=== PATIENT | female | born 1940 | race Native Hawaiian/Other Pacific Islander ===

== ENCOUNTER 2016-05-07 11:50 | Outpatient (CLI) | payer MEDICARE, OTHER | END 2016-05-07 11:51 | disposition home or self-care (01) | DX: J18.9 Pneumonia, unspecified organism (principal) ==

== ENCOUNTER 2016-06-26 09:09 | Outpatient (CLI) | payer MEDICARE, OTHER | END 2016-06-26 09:10 | disposition home or self-care (01) | DX: Z00.00 Encounter for general adult medical examination without abnormal findings (principal); I10 Essential (primary) hypertension; E78.5 Hyperlipidemia, unspecified; I77.9 Disorder of arteries and arterioles, unspecified; I77.1 Stricture of artery; F17.200 Nicotine dependence, unspecified, uncomplicated ==

== ENCOUNTER 2016-06-30 | Outpatient (CLI) | payer MEDICARE, OTHER | END 2016-06-30 12:39 | disposition home or self-care (01) | DX: Z53.9 Procedure and treatment not carried out, unspecified reason (principal) ==

== ENCOUNTER 2016-07-03 14:12 | Outpatient (CLI) | payer MEDICARE, OTHER | END 2016-07-03 14:13 | disposition home or self-care (01) | DX: Z13.820 Encounter for screening for osteoporosis (principal); N95.9 Unspecified menopausal and perimenopausal disorder; E55.9 Vitamin D deficiency, unspecified ==

== ENCOUNTER 2017-06-14 09:15 | Outpatient (CLI) | payer MEDICARE, OTHER | END 2017-06-14 09:30 | disposition home or self-care (01) | LOC: RT.N 09:15 | PROVIDERS: ATTEND Physician Assistant Medical | DX: R42 Dizziness and giddiness (principal); R07.9 Chest pain, unspecified | CPT/HCPCS: 93005 ==

== ENCOUNTER 2017-06-16 09:02 | Outpatient (CLI) | payer MEDICARE, OTHER ==
[2017-06-16 13:00] LABS: BASOPHILS # (AUTO) 0.1 10^3/uL (0.0-0.1); BASOPHILS % (AUTO) 1.4 %; EOSINOPHILS # (AUTO) 0.3 10^3/uL (0.0-0.7); EOSINOPHILS % (AUTO) 3.2 %; HGB - HEMOGLOBIN 14.7 g/dL (12.0-16.0); LYMPHOCYTES # (AUTO) 1.6 10^3/uL (1.5-3.5); LYMPHOCYTES % (AUTO) 18.2 %; MEAN CORPUSCULAR HEMOGLOBIN 31.1 pg (27.0-31.0); MEAN CORPUSCULAR HGB CONC 33.4 g/dL (32.0-36.0); MEAN CORPUSCULAR VOLUME 93.1 fL (81.0-99.0); MONOCYTES # (AUTO) 0.8 10^3/uL (0.0-1.0); MONOCYTES % (AUTO) 8.5 %; NEUTROPHILS # (AUTO) 6.1 10^3/uL (1.5-6.6); NEUTROPHILS % (AUTO) 68.7 %; PLT - PLATELET COUNT 303 10^3/uL (130-450); RED BLOOD COUNT 4.71 10^6/uL (4.20-5.40); RED CELL DISTRIBUTION WIDTH 14.6 % (12.0-15.0); WHITE BLOOD COUNT 8.8 x10^3/uL (4.8-10.8)
[2017-06-16 13:29] LABS: ALBUMIN 4.6 g/dL (3.2-5.5); ALBUMIN/GLOBULIN RATIO 1.4 (1.0-2.2); ALKALINE PHOSPHATASE 59 IU/L (42-121); ALT ALANINE AMINOTRANSFERASE 19 IU/L (10-60); AST ASPARTATE AMINOTRANSFERASE 28 IU/L (10-42); BILIRUBIN,TOTAL 0.7 mg/dL (0.2-1.0); BUN - BLOOD UREA NITROGEN 17 mg/dL (6-20); CARBON DIOXIDE - CO2 25 mmol/L (21-32); CHLORIDE 102 mmol/L (101-111); CHOL/HDL RATIO 2.2 (<4.4); CHOLESTEROL 136 mg/dL; CREATININE 0.6 mg/dL (0.4-1.0); GFR - MDRD 97 (>89); GLUCOSE 102 mg/dL (70-100); HDL CHOLESTEROL 61 mg/dL; LDL CHOLESTEROL,CALCULATED 58 mg/dL; SODIUM 137 mmol/L (135-145); VLDL CHOLESTEROL 17 mg/dL
[2017-06-16 13:35] LABS: HB2 TOTAL 16.6 g/dL; HEMOGLOBIN A1C 0.79 g/dL; HEMOGLOBIN A1C % 6.5 % (4.6-6.2)
== END 2017-06-16 09:03 | disposition home or self-care (01) ==
LOC: LAB.N 09:02
PROVIDERS: ATTEND Physician Assistant Medical
DX: I65.29 Occlusion and stenosis of unspecified carotid artery (principal); I10 Essential (primary) hypertension; E11.9 Type 2 diabetes mellitus without complications; E78.5 Hyperlipidemia, unspecified; R42 Dizziness and giddiness; R07.89 Other chest pain; J44.9 Chronic obstructive pulmonary disease, unspecified; F17.210 Nicotine dependence, cigarettes, uncomplicated
CPT/HCPCS: 36415; 80053; 80061; 82043; 83036; 83721; 84443; 85025

== ENCOUNTER 2017-07-12 09:37 | Outpatient (CLI) | payer MEDICARE, OTHER ==
[2017-07-12 12:57] LABS: CREATININE 0.6 mg/dL (0.4-1.0)
== END 2017-07-12 23:59 ==
LOC: LAB.N 09:37
PROVIDERS: ATTEND Internal Medicine Cardiovascular Disease
DX: I73.9 Peripheral vascular disease, unspecified (principal); I77.1 Stricture of artery; I10 Essential (primary) hypertension
CPT/HCPCS: 36415; 80048

== ENCOUNTER 2017-07-28 12:49 | Emergency (ER) | payer MEDICARE, OTHER ==
[2017-07-28] MEDS ORDERED: SODIUM CHLORIDE 0.9% 1,000 ML IV ONE (13:39)
[2017-07-28] MEDS ORDERED: ONDANSETRON 4 MG/2 ML VIAL IVP STA (13:40)
--- NOTE | 2017-07-28 13:43 | ED Physician Documentation ---
PD HPI FOCAL NEURO - Stated complaint Stated Complaint: WEAK/DIZZY - Chief complaint Chief Complaint: Neuro - History obtained from History obtained from: Patient, Family (spouse) - History of Present Illness Timing - onset: How many hours ago (05/04), Today Timing - duration: Hours (2) Timing - details: Abrupt onset, Still present Severity of deficit: Mild Weakness: Other (feeling of lightheadedness and vertigo/dizziness, abruptly, with feeling off balance. No new focal weakness. Had similar lasting few minutes about amonth ago and seen by Cardiology Dr. Bernabe and Dr. Xavier, with findings of diminished flow right ?neck/arm.). No: Face Numbness: No: Face Associated symptoms: No: Headache, Nausea / vomiting Contributing factors: positive: Atrial fibrillation. 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 denies: Numbness , Near syncope PD PAST MEDICAL HISTORY - Past Medical History Cardiovascular: Hypertension, High cholesterol Respiratory: COPD, Pneumonia Neuro: CVA (with left facial mild droop and twitching. ) Endocrine/Autoimmune: None GI: None : None HEENT: None Psych: None Musculoskeletal: None Derm: None - Past Surgical History Past Surgical History: Yes General: Colonoscopy Ortho: Rotator cuff repair /[employer]: section, Tubal ligation - Present Medications Home Medications: Ambulatory Orders Medication Instructions Recorded Confirmed Aspirin [Sherrie] 325 mg PO ONCE 12/13/13 09/11/14 Cetirizine [ZyrTEC] 10 mg PO ONCE 12/13/13 09/11/14 Fluticasone/Salmeterol 100/50 60 puffs INH BID 12/13/13 09/11/14 [Advair 100 Mcg/50 Mcg] Losartan [Cozaar] 50 mg PO DAILY 12/13/13 09/11/14 Simvastatin [Zocor] 40 mg PO DAILY 12/13/13 09/11/14 Ipratropium/Albuterol [Duoneb] 1 neb INH PRN 09/04/14 09/11/14 Multivitamin [Daily Multiple 1 each PO DAILY 09/04/14 09/11/14 Vitamin] Budesonide [Pulmicort] 09/11/14 09/11/14 Doxycycline Hyclate 100 mg ORAL DAILY 09/11/14 09/11/14 Guaifenesin [Mucinex] 600 mg PO 09/11/14 09/11/14 Saccharomyces Boulardii [Florastor] 250 mg PO DAILY 09/11/14 09/11/14 diphenhydrAMINE [Benadryl] 25 mg PO Q6H PRN #20 capsule 09/11/14 predniSONE [Deltasone] 20 mg PO DAILY 09/11/14 09/11/14 Meclizine [Antivert] 12.5 mg PO Q6H PRN #20 tablet 07/28/17 - Allergies Allergies/Adverse Reactions: Allergies Allergy/AdvReac Type Severity Reaction Status Date / Time No Known Drug Allergies Allergy Verified 09/04/14 21:09 - Social History Does the pt smoke?: No Smoking Status: Never smoker Does the pt drink ETOH?: No Does the pt have substance abuse?: No - Immunizations Immunizations are current?: Yes - POLST Patient has POLST: Yes PD ED PE NORMAL - Vitals Vital signs reviewed: Yes - General General: Alert and oriented X 3, No acute distress, Well developed/nourished - HEENT HEENT: Ears normal, Pharynx benign - Neck Neck: Supple, no meningeal sign, No adenopathy - Cardiac Cardiac: RRR, No murmur - Respiratory Respiratory: Clear bilaterally - Abdomen Abdomen: Soft, Non tender - Back Back: No CVA TTP - Derm Derm: Normal color, Warm and dry - Neuro Neuro: Normal speech, Other (lef facial droop and numbness which she says is baseline from prior CVA. ) NIHSS - Level of Consciousness Level of consciousness: (0) Alert, Keenly responsive LOC Questions: (0) Answers both Q's correct LOC Commands: (0) Performs both correctly - Gaze Best Gaze: (0) Normal - Visual Visual: (0) No loss - Facial Palsy Facial Palsy: (1) Minor paralysis (from prior CVA) - Motor Arms (both separate) Motor Arm (right): (0) No drift Motor Arm (left): (0) No drift - Motor Legs (both separate) Motor Leg (right): (0) No drift Motor Leg (left): (0) No drift - Limb Ataxia Limb Ataxia: (0) Absent - Sensory Sensory: (0) Normal - Best Language Best Language: (0) No aphasia - Dysarthria Dysarthria: (0) Normal - Extinction and Inattention (formally neg Extinction and inattention: (0) No abnormality - Total Score/Results Total Score/Result: 1 Results - Vitals Vitals: Oxygen O2 Source Room air - EKG (time done) 13:00 Rate: Rate (enter#) (87) Rhythm: NSR [place]: Normal Intervals: Normal [place] QRS: Normal Ischemia: Normal ST segments. No: ST elevation c/w ischemia, ST depression Computer interpretation: Disagree with computer - Labs Labs: Laboratory Tests 07/28/17 07/28/17 07/28/17 14:11 14:11 14:11 WBC 11.2 H RBC 4.38 Hgb 13.5 Hct 40.2 MCV 91.8 MCH 30.9 MCHC 33.6 RDW 14.8 Plt Count 270 MPV 7.3 L Neut # 8.7 H Lymph # 1.3 L [place] # 0.9 Eos # 0.2 Baso # 0.1 Absolute Nucleated RBC 0.00 Nucleated RBC % 0.0 Sodium 133 L Potassium 4.3 Chloride 98 L Carbon Dioxide 25 Anion Gap 10.0 BUN 9 Creatinine 0.6 Estimated GFR (MDRD) 97 Glucose 114 H POC Whole Bld Glucose Calcium 8.8 Magnesium 2.0 Total Bilirubin 0.9 AST 23 ALT 19 Alkaline Phosphatase 70 Troponin I < 0.04 Total Protein 7.8 Albumin 4.4 Globulin 3.4 Albumin/Globulin Ratio 1.3 Lipase 20 L Urine Color Urine Clarity Urine pH Ur Specific [place] Urine Protein Urine Glucose (UA) Urine Ketones Urine Occult Blood Urine Nitrite Urine Bilirubin Urine Urobilinogen Ur Leukocyte Esterase Ur Microscopic Review Urine Culture Comments 03/28/18 03/28/18 14:12 15:10 WBC RBC Hgb Hct MCV MCH MCHC RDW Plt Count MPV Neut # Lymph # [place] # Eos # Baso # Absolute Nucleated RBC Nucleated RBC % Sodium Potassium Chloride Carbon Dioxide Anion Gap BUN Creatinine Estimated GFR (MDRD) Glucose POC Whole Bld Glucose 116 H Calcium Magnesium Total Bilirubin AST ALT Alkaline Phosphatase Troponin I Total Protein Albumin Globulin Albumin/Globulin Ratio Lipase Urine Color YELLOW Urine Clarity CLEAR Urine pH 7.0 Ur Specific [place] 1.010 Urine Protein NEGATIVE Urine Glucose (UA) NEGATIVE Urine Ketones NEGATIVE Urine Occult Blood NEGATIVE Urine Nitrite NEGATIVE Urine Bilirubin NEGATIVE Urine Urobilinogen 0.2 (NORMAL) Ur Leukocyte Esterase NEGATIVE Ur Microscopic Review NOT INDICATED Urine Culture Comments NOT INDICATED - Rads (name of study) head CT Radiology: Prelim report reviewed (no acute changes; no bleed) brain MRI Radiology: Prelim report reviewed (n signs of acute CVA nor other suspect lesions) PD MEDICAL DECISION MAKING - ED course Complexity details: reviewed results, considered differential (concern for peripheral vs central vertigo and feeling of dissiness. She does feel that she is off balance too, so concern for CVA. CT was normal), d/w patient, d/w family (spouse) Departure - Departure Disposition: 01 Home, Self Care Clinical Impression: Dizziness, Light-headed feeling Medication side effect Qualifiers: Encounter type: initial encounter Qualified Code(s): T88.7XXA - Unspecified adverse effect of drug or medicament, initial encounter Clinical Impression: (Ruled Out): Cerebrovascular accident (CVA) Condition: Stable Record reviewed to determine appropriate education?: Yes Instructions: ED Vertigo Unspecified Follow-Up: Seferino Vaughn MD [Primary Care Provider] - Prescriptions: Meclizine [Antivert] 12.5 mg PO Q6H PRN #20 tablet PRN Reason: Vertigo Comments: No signs of stroke or other acute abnormality on your MRI. Presume this may be a side effect to the medication for smoking cessation your recently started. Hold that medication. He could possibly be in her ear process as well. Meclizine every 6-8 hours if needed for dizziness. Recheck if not improved over the next couple of days. Follow-up with your primary care regarding other smoking cessation ideas. Discharge Date/Time: 07/28/17 18:08
--- NOTE | 2017-07-28 14:08 | CT Preliminary Report ---
Exam: CT HEAD W/O STROKE PROTOCOL IMPRESSION: Generalized age-related cortical atrophic changes without evidence of acute intracranial abnormality. RAD[facility] The call report notification system was initiated by Dr. Javi Gimenez at 14:03 hrs on 07/28/17. The above findings were discussed with Dr. Javi Block by Dr. Javi Gimenez at 14:06 hrs on 07/28/17. SITE ID: [id number]
--- NOTE | 2017-07-28 14:08 | CT Report ---
EXAM: CT HEAD EXAM DATE: 07/28/2017 01:57 PM. CLINICAL HISTORY: Acute dizziness/vertigo about 1 1/2 hours [employer] REPA[employer]. COMPARISON: None. TECHNIQUE: Multiaxial CT images were obtained from the foramen magnum to the vertex. Reformats: Coron al. IV contrast: None. In accordance with CT protocol optimization, one or more of the following dose reduction techniques w ere utilized for this exam: automated exposure control, adjustment of mA and/or KV based on patient s ize, or use of iterative reconstructive technique. FINDINGS: Parenchyma: No intraparenchymal hemorrhage. No evidence of mass, midline shift, or CT findings of acu te infarction. Grace-white differentiation is distinct. Diffuse chronic microangiopathic white matter changes are evident. Extraaxial Spaces: Normal for age. No subdural or epidural collections identified. Ventricles: The ventricles and cortical sulci are enlarged, consistent with age-related tissue loss. Sinuses and orbits: Imaged paranasal sinuses, orbits, and mastoids show no significant abnormality. Bones: No evidence of fracture or calvarial defect. Other: None. IMPRESSION: Generalized age-related cortical atrophic changes without evidence of acute intracranial abnormality. RADIA The call report notification system was initiated by Dr. Javi Gimenez at 14:03 hrs on 07/28/17. The above findings were discussed with Dr. Javi Block by Dr. Javi Gimenez at 14:06 hrs on 07/28/17. Referring Provider Line: [phone] SITE ID: [id number]
[2017-07-28 14:24] LABS: BASOPHILS # (AUTO) 0.1 10^3/uL (0.0-0.1); BASOPHILS % (AUTO) 0.9 %; EOSINOPHILS # (AUTO) 0.2 10^3/uL (0.0-0.7); EOSINOPHILS % (AUTO) 1.7 %; HGB - HEMOGLOBIN 13.5 g/dL (12.0-16.0); LYMPHOCYTES # (AUTO) 1.3 10^3/uL (1.5-3.5); LYMPHOCYTES % (AUTO) 11.6 %; MEAN CORPUSCULAR HEMOGLOBIN 30.9 pg (27.0-31.0); MEAN CORPUSCULAR HGB CONC 33.6 g/dL (32.0-36.0); MEAN CORPUSCULAR VOLUME 91.8 fL (81.0-99.0); MEAN PLATELET VOLUME 7.3 fL (7.9-10.8); MONOCYTES # (AUTO) 0.9 10^3/uL (0.0-1.0); MONOCYTES % (AUTO) 7.8 %; NEUTROPHILS # (AUTO) 8.7 10^3/uL (1.5-6.6); PLT - PLATELET COUNT 270 10^3/uL (130-450); RED BLOOD COUNT 4.38 10^6/uL (4.20-5.40); RED CELL DISTRIBUTION WIDTH 14.8 % (12.0-15.0); WHITE BLOOD COUNT 11.2 x10^3/uL (4.8-10.8)
[2017-07-28 14:32] LABS: ALBUMIN 4.4 g/dL (3.2-5.5); ALBUMIN/GLOBULIN RATIO 1.3 (1.0-2.2); BILIRUBIN,TOTAL 0.9 mg/dL (0.2-1.0); CALCIUM 8.8 mg/dL (8.5-10.3); CREATININE 0.6 mg/dL (0.4-1.0); TOTAL PROTEIN 7.8 g/dL (6.7-8.2)
[2017-07-28] MEDS ORDERED: LORazepam 2 MG/ML VIAL IVP STA (15:04)
[2017-07-28 15:23] LABS: BILIRUBIN,URINE NEGATIVE (NEGATIVE); GLUCOSE, URINE (UA) NEGATIVE (NEGATIVE); KETONES,URINE (UA) NEGATIVE (NEGATIVE); LEUKOCYTE ESTERASE, URINE NEGATIVE (NEGATIVE); NITRITE,URINE NEGATIVE (NEGATIVE); OCCULT BLOOD,URINE NEGATIVE (NEGATIVE); PROTEIN,URINE NEGATIVE (NEGATIVE); UROBILINOGEN,URINE 0.2 (NORMAL) E.U./dL (NORMAL)
[2017-07-28 15:24] LABS: CLARITY,URINE CLEAR (CLEAR)
--- NOTE | 2017-07-28 16:54 | MRI Report ---
EXAM: MRI BRAIN WITHOUT CONTRAST EXAM DATE: 07/28/2017 04:36 PM. CLINICAL HISTORY: Dizziness/weak; possible CVA. COMPARISON: CT head from today. TECHNIQUE: Multiplanar, multisequence T1-weighted and fluid-sensitive MR sequences of the brain were performed. Sequences optimized for routine evaluation. Other: None. IV Contrast: None. FINDINGS: No restricted diffusion signal or magnetic susceptibility is present in the brain parenchyma. Motion degradation is present on the study which limits it. Ventricles and sulci are within normal limits for the patient's age. Fairly extensive subcortical and deep white matter FLAIR hyperintense signal is seen in the cerebral hemisphere white matter. FLAIR h yperintense signal in the ventral aspect of the medulla on the axial FLAIR sequence has no correlate on the other imaging sequence and is felt to be artifact. Expected flow voids are seen in the major intracranial vessels at the skull base. Expected flow void is seen in the superior sagittal sinus. No abnormal T1 shortening is present within the brain parenchyma. IMPRESSION: 1. No acute CVA is present on the diffusion-weighted images. 2. Small vessel ischemic change throughout the cerebral hemisphere white matter is noted 3. No intracranial mass is identified by noncontrast MRI. 4. Motion degradation significantly limits the examination [facility] Referring Provider Line: [phone] SITE ID: [id number]
[2017-07-28 18:04] VITALS: BP 103/91
== END 2017-07-28 18:08 | disposition home or self-care (01) ==
LOC: ED 12:49
DX: R42 Dizziness and giddiness (principal); T88.7XXA Unspecified adverse effect of drug or medicament, initial encounter; I10 Essential (primary) hypertension; J44.9 Chronic obstructive pulmonary disease, unspecified; E78.00 Pure hypercholesterolemia, unspecified; Z86.73 Personal history of transient ischemic attack (TIA), and cerebral infarction without residual deficits; Z79.82 Long term (current) use of aspirin
CPT/HCPCS: 36415; 70450; 70551; 80053; 81003; 83690; 83735; 84484; 85025; 93005; 96361; 96374; 96375; 99284; J2060; 81001; 87086

== ENCOUNTER 2017-08-23 08:01 | Outpatient (CLI) | payer MEDICARE, OTHER ==
[2017-08-23 13:30] LABS: HB2 TOTAL 15.8 g/dL; HEMOGLOBIN A1C 0.78 g/dL; HEMOGLOBIN A1C % 6.7 % (4.6-6.2)
[2017-08-23 13:45] LABS: BUN - BLOOD UREA NITROGEN 14 mg/dL (6-20); CALCIUM 9.3 mg/dL (8.5-10.3); CARBON DIOXIDE - CO2 25 mmol/L (21-32); CHLORIDE 99 mmol/L (101-111); CHOL/HDL RATIO 2.4 (<4.4); CHOLESTEROL 143 mg/dL; CREATININE 0.6 mg/dL (0.4-1.0); GFR - MDRD 97 (>89); GLUCOSE 102 mg/dL (70-100); HDL CHOLESTEROL 59 mg/dL; LDL CHOLESTEROL,CALCULATED 67 mg/dL; LDL/HDL RATIO 1.1 (<4.4); SODIUM 133 mmol/L (135-145); VLDL CHOLESTEROL 17 mg/dL
== END 2017-08-23 08:02 | disposition home or self-care (01) ==
LOC: LAB.N 08:01
PROVIDERS: ATTEND Internal Medicine Interventional Cardiology
DX: I73.9 Peripheral vascular disease, unspecified (principal); E11.9 Type 2 diabetes mellitus without complications
CPT/HCPCS: 36415; 80048; 80061; 83036; 83721

== ENCOUNTER 2018-02-01 07:55 | Outpatient (CLI) | payer MEDICARE, OTHER ==
[2018-02-01 14:01] LABS: HB2 TOTAL 14.5 g/dL; HEMOGLOBIN A1C 0.75 g/dL; HEMOGLOBIN A1C % 6.9 % (4.6-6.2)
[2018-02-01 14:13] LABS: CALCIUM 9.2 mg/dL (8.5-10.3); CREATININE 0.6 mg/dL (0.4-1.0)
== END 2018-02-01 07:56 | disposition home or self-care (01) ==
LOC: LAB.WCP 07:55
PROVIDERS: ATTEND Nurse Practitioner Gerontology
DX: E11.9 Type 2 diabetes mellitus without complications (principal)
CPT/HCPCS: 36415; 80048; 83036

== ENCOUNTER → 2018-03-08 | Outpatient (CLI) | payer MEDICARE, OTHER | LOC: RT.N 10:19 | PROVIDERS: ATTEND Nurse Practitioner | DX: R07.89 Other chest pain (principal) | CPT/HCPCS: 93005 ==

== ENCOUNTER 2018-06-23 04:23 | Emergency (ER) | payer MEDICARE, OTHER ==
--- NOTE | 2018-06-23 04:51 | ED Physician Documentation ---
PD HPI CHEST PAIN - Stated complaint Stated Complaint: CHEST PAIN - Chief complaint Chief Complaint: Cardiac - History obtained from History obtained from: Patient, Family - History of Present Illness Timing - onset: Enter time (03:00), Today Timing - onset during: Rest (at home while seated at computer) Timing - duration: Minutes Timing - details: Abrupt onset, Intermittant Pain level max: 6 Pain level now: 0 Quality: Pain Location: Substernal Radiation: Other (no radiation) Improved by: Nothing Worsened by: Other (no exacerbating factors) Associated symptoms: No: Shortness of air, Diaphoresis, Nausea, Vomiting, Feeling faint / dizzy, General Weakness, Palpitations, Cough Similar symptoms before: Has not had sx before Recently seen: Not recently seen Review of Systems Constitutional: reports: Reviewed and negative Cardiac: reports: Chest pain / pressure. denies: Palpitations, Pedal edema, Calf pain Respiratory: reports: Reviewed and negative GI: reports: Reviewed and negative Musculoskeletal: reports: Reviewed and negative PD PAST MEDICAL HISTORY - Past Medical History Cardiovascular: Hypertension, High cholesterol, Coronary artery disease, Other Respiratory: COPD, Pneumonia Endocrine/Autoimmune: None GI: None : None HEENT: None Psych: None Musculoskeletal: None Derm: None - Past Surgical History Past Surgical History: Yes General: Colonoscopy Ortho: Rotator cuff repair /[employer]: section, Tubal ligation Cardiovascular: Angioplasty, Other - Present Medications Home Medications: Ambulatory Orders Medication Instructions Recorded Confirmed Aspirin [Sherrie] 325 mg PO ONCE 12/13/13 06/23/18 Cetirizine [ZyrTEC] 10 mg PO ONCE 12/13/13 06/23/18 Fluticasone/Salmeterol 100/50 60 puffs INH BID 12/13/13 06/23/18 [Advair 100 Mcg/50 Mcg] Losartan [Cozaar] 50 mg PO DAILY 12/13/13 06/23/18 Simvastatin [Zocor] 40 mg PO DAILY 12/13/13 06/23/18 Ipratropium/Albuterol [Duoneb] 1 neb INH PRN 09/04/14 09/11/14 Multivitamin [Daily Multiple 1 each PO DAILY 09/04/14 09/11/14 Vitamin] Saccharomyces Boulardii [Florastor] 250 mg PO DAILY 09/11/14 09/11/14 - Allergies Allergies/Adverse Reactions: Allergies Allergy/AdvReac Type Severity Reaction Status Date / Time No Known Drug Allergies Allergy Verified 06/23/18 04:38 - Social History Does the pt smoke?: No Smoking Status: Never smoker Does the pt drink ETOH?: No Does the pt have substance abuse?: No - Immunizations Immunizations are current?: Yes - POLST Patient has POLST: Yes PD ED PE NORMAL - Vitals Vital signs reviewed: Yes - General General: Alert and oriented X 3, No acute distress, Well developed/nourished - HEENT HEENT: Moist mucous membranes - Neck Neck: Supple, no meningeal sign - Cardiac Cardiac: RRR, No murmur, No gallop, No rub - Respiratory Respiratory: No respiratory distress, Clear bilaterally - Abdomen Abdomen: Soft, Non tender - Derm Derm: Normal color, Warm and dry, No rash - Extremities Extremities: No edema Results - Vitals Vitals: Oxygen O2 Source Room air - EKG (time done) No standard instances Rate: Rate (enter#) (88) Rhythm: NSR [place]: Normal Intervals: Normal [place] QRS: Normal Ischemia: Normal ST segments - Labs Labs: Laboratory Tests 06/23/18 06/23/18 06/23/18 04:35 04:35 04:35 WBC 7.3 RBC 4.24 Hgb 13.2 Hct 39.8 MCV 93.8 MCH 31.2 H MCHC 33.2 RDW 14.4 Plt Count 297 MPV 7.3 L Neut # (Auto) 4.2 Lymph # (Auto) 1.9 [place] # (Auto) 0.9 Eos # (Auto) 0.2 Baso # (Auto) 0.1 Absolute Nucleated RBC 0.00 Nucleated RBC % 0.0 Sodium 135 Potassium 3.7 Chloride 96 L Carbon Dioxide 25 Anion Gap 14.0 H BUN 19 Creatinine 0.6 Estimated GFR (MDRD) 97 Glucose 119 H Calcium 9.0 Total Bilirubin 1.0 AST 26 ALT 19 Alkaline Phosphatase 73 Troponin I < 0.04 Total Protein 7.6 Albumin 4.5 Globulin 3.1 Albumin/Globulin Ratio 1.5 Lipase 44 - Rads (name of study) chest xray Radiology: Prelim report reviewed, See rad report PD MEDICAL DECISION MAKING - ED course Complexity details: reviewed results, re-evaluated patient, considered differential, d/w patient, d/w family ED course: chest-pain free by the time of my H+P and, on reevaluation after tests resulted, patient tells me she has not had any recurrence of chest pain during ED stay. Departure - Departure Disposition: 01 Home, Self Care Clinical Impression: Chest pain Qualifiers: Chest pain type: unspecified Qualified Code(s): R07.9 - Chest pain, unspecified Condition: Good Instructions: ED Chest Pain Atypical Unkn Cause Follow-Up: Chayito Castillo DNP [Primary Care Provider] - Discharge Date/Time: 06/23/18 06:18
[2018-06-23 04:52] LABS: BASOPHILS # (AUTO) 0.1 10^3/uL (0.0-0.1); EOSINOPHILS # (AUTO) 0.2 10^3/uL (0.0-0.7); EOSINOPHILS % (AUTO) 2.7 %; HGB - HEMOGLOBIN 13.2 g/dL (12.0-16.0); LYMPHOCYTES # (AUTO) 1.9 10^3/uL (1.5-3.5); LYMPHOCYTES % (AUTO) 26.4 %; MEAN CORPUSCULAR HEMOGLOBIN 31.2 pg (27.0-31.0); MEAN CORPUSCULAR HGB CONC 33.2 g/dL (32.0-36.0); MEAN CORPUSCULAR VOLUME 93.8 fL (81.0-99.0); MEAN PLATELET VOLUME 7.3 fL (7.9-10.8); MONOCYTES # (AUTO) 0.9 10^3/uL (0.0-1.0); MONOCYTES % (AUTO) 11.8 %; NEUTROPHILS # (AUTO) 4.2 10^3/uL (1.5-6.6); NEUTROPHILS % (AUTO) 58.1 %; PLT - PLATELET COUNT 297 10^3/uL (130-450); RED BLOOD COUNT 4.24 10^6/uL (4.20-5.40); RED CELL DISTRIBUTION WIDTH 14.4 % (12.0-15.0); WHITE BLOOD COUNT 7.3 x10^3/uL (4.8-10.8)
[2018-06-23 05:07] LABS: ALBUMIN 4.5 g/dL (3.2-5.5); ALBUMIN/GLOBULIN RATIO 1.5 (1.0-2.2); CREATININE 0.6 mg/dL (0.4-1.0); TOTAL PROTEIN 7.6 g/dL (6.7-8.2)
--- NOTE | 2018-06-23 05:38 | XRAY Report ---
Reason: chest pain, dyspnea Procedure Date: 06/23/2018 Accession Number: [id number] / [id number] Procedure: XR - Chest 2 View X-Ray CPT Code: 57280 FULL RESULT: EXAM: CHEST RADIOGRAPHY EXAM DATE: 06/23/2018 05:28 AM. CLINICAL HISTORY: Chest pain, dyspnea. COMPARISON: CHEST 2 VIEW PA/LAT 05/07/2016 12:25 PM. TECHNIQUE: 2 views. FINDINGS: Lungs/Pleura: No focal opacities evident. No pleural effusion. No pneumothorax. Normal volumes. Mediastinum: Heart and mediastinal contours are unremarkable. Other: None. IMPRESSION: Normal 2-view chest radiography. RADIA
[2018-06-23 06:01] VITALS: BP 131/66
== END 2018-06-23 06:18 | disposition home or self-care (01) ==
LOC: ED 04:23
DX: R07.9 Chest pain, unspecified (principal); I10 Essential (primary) hypertension; E78.00 Pure hypercholesterolemia, unspecified; I25.10 Atherosclerotic heart disease of native coronary artery without angina pectoris; Z79.82 Long term (current) use of aspirin
CPT/HCPCS: 36415; 71046; 80053; 83690; 84484; 85025; 93005; 99283; 99284

== ENCOUNTER 2018-06-24 09:20 | Outpatient (CLI) | payer MEDICARE, OTHER ==
--- NOTE | 2018-06-24 12:47 | XRAY Report ---
Reason: LUMBAGO Procedure Date: 06/24/2018 Accession Number: [id number] / [id number] Procedure: XRN - Lumbar Spine 2 View CPT Code: FULL RESULT: EXAM: LUMBOSACRAL SPINE RADIOGRAPHY EXAM DATE: 06/24/2018 09:47 AM. CLINICAL HISTORY: Lumbago. COMPARISONS: 06/28/2014 3:08 PM. TECHNIQUE: 3 views. FINDINGS: Alignment: There is 1.1 cm of anterolisthesis of L4 on L5, likely pars defect. No scoliosis. Bones: Five [id number] lumbar vertebral bodies are present. No fractures or bone lesions. Disks: Moderate loss of disk space height with sclerosis and osteophytosis. Facets: Severe facet arthropathy at L4 and L5, mild to moderate at other levels. Sacroiliac Joints: Unremarkable. Soft Tissues: Calcifications of the abdominal aorta. IMPRESSION: Degenerative changes with 1.1 cm of anterolisthesis of L4 on L5. RADIA
== END 2018-06-24 09:21 | disposition home or self-care (01) ==
LOC: DI.N 09:20
PROVIDERS: ATTEND Nurse Practitioner
DX: M51.36 Other intervertebral disc degeneration, lumbar region (principal); M47.9 Spondylosis, unspecified; M43.16 Spondylolisthesis, lumbar region
CPT/HCPCS: 72100

== ENCOUNTER 2018-07-07 07:24 | Outpatient (CLI) | payer MEDICARE, OTHER ==
[2018-07-07 08:13] LABS: CHOLESTEROL 118 mg/dL; HDL CHOLESTEROL 60 mg/dL; LDL CHOLESTEROL,CALCULATED 44 mg/dL; LDL/HDL RATIO 0.7 (<4.4); VLDL CHOLESTEROL 14 mg/dL
== END 2018-07-07 07:25 | disposition home or self-care (01) ==
LOC: LAB 07:24
PROVIDERS: ATTEND Internal Medicine Cardiovascular Disease
DX: E78.5 Hyperlipidemia, unspecified (principal)
CPT/HCPCS: 36415; 80061; 83721

== ENCOUNTER 2018-10-25 07:07 | Outpatient (CLI) | payer MEDICARE, OTHER ==
--- NOTE | 2018-10-25 12:45 | CT Report ---
Reason: PERSONAL HISTORY OF NICOTINE DEPENDENCE Procedure Date: 10/25/2018 Accession Number: [id number] / [id number] Procedure: CT - Low Dose Lung Cancer Screen CPT Code: FULL RESULT: EXAM CT LUNG SCREEN EXAM DATE: 10/25/2018 07:37 AM. HISTORY: 78-year-old patient with [id number] smoking history. Currently smoking: Yes. COMPARISON: None. TECHNIQUE: CT examination of the entire thorax without contrast was performed using low-dose technique. Thin section coronal, axial, sagittal and MIP axial images were obtained. In accordance with CT protocol optimization, one or more of the following dose reduction techniques were utilized for this exam: automated exposure control, adjustment of mA and/or KV based on patient size, or use of iterative reconstructive technique. FINDINGS: Nodules: Right upper lobe: 4 mm nodule image 42 series 4. Partially groundglass 6 mm nodule image 43. 3 mm nodule image 52. 3 mm nodule image 58. 4 mm nodule image 68. Right middle lobe: None. Right lower lobe: 4 mm nodule image 74. 4 mm calcified nodule image 95, granuloma. 3 mm calcified nodule image 104, granuloma. Left upper lobe: 3 mm nodule image 39. Left lower lobe: None. Emphysema: Mild. Pleura: Biapical pleural thickening. Aorta: Severely calcified. Mediastinum: Unremarkable. Coronary calcifications: Severe 3 vessel. Other pulmonary findings: Subtle peripheral tree-in-bud opacities are noted, nonspecific but possibly smoking related hypersensitivity. Other extrapulmonary findings: None. IMPRESSION: Lung-RADS ASSESSMENT CATEGORY: 2 - benign appearance or behavior. Probability of malignancy: 1% RECOMMENDATION: Follow-up low-dose chest CT in one year as per lung RADS and USPSTF guidelines. RADIA
== END 2018-10-25 07:08 | disposition home or self-care (01) ==
LOC: DI 07:07
PROVIDERS: ATTEND Internal Medicine
DX: Z12.2 Encounter for screening for malignant neoplasm of respiratory organs (principal); J43.9 Emphysema, unspecified; F17.210 Nicotine dependence, cigarettes, uncomplicated

== ENCOUNTER 2020-08-27 16:28 | Outpatient (CLI) | payer MEDICARE, OTHER | END 2020-08-27 16:29 | disposition home or self-care (01) | LOC: COV 16:28 | PROVIDERS: ATTEND Internal Medicine Interventional Cardiology | DX: Z01.812 Encounter for preprocedural laboratory examination (principal); I77.1 Stricture of artery; Z20.822 Contact with and (suspected) exposure to COVID-19 ==

== ENCOUNTER 2022-09-04 10:30 | Outpatient (CLI) | payer MEDICARE, OTHER ==
--- NOTE | 2022-09-04 12:09 | Ultrasound Report ---
PROCEDURE: Duplex Ext Veins Right INDICATIONS: PAIN IN RIGHT LEG, EDEMA TECHNIQUE: Real-time imaging, as well as color and pulse Doppler interrogation, were performed of the lower extr emity deep veins from the inguinal ligament to the popliteal fossa. COMPARISON: None. FINDINGS: The deep veins are normally compressible, and free of intraluminal thrombus. Color and pu lse Doppler demonstrate normal phasic intraluminal flow. There is normal augmentation response to di stal compression maneuver. Small lobulated fluid collection is seen in popliteal fossa and measures approximately IMPRESSION: 1. No evidence of DVT in visualized right lower extremity veins. 2. Small right popliteal cyst. Reviewed by: Apolinar Baumann MD on 09/04/2022 12:08 PM PDT Approved by: Apolinar Baumann MD on 09/04/2022 12:08 PM PDT Station ID: [id number]
== END 2022-09-04 10:31 | disposition home or self-care (01) ==
LOC: DI 10:30
PROVIDERS: ATTEND Internal Medicine
DX: M79.604 Pain in right leg (principal); R60.0 Localized edema; M71.21 Synovial cyst of popliteal space [Baker], right knee

== ENCOUNTER 2022-12-16 09:55 | Outpatient (CLI) | payer MEDICARE, OTHER ==
--- NOTE | 2022-12-16 16:43 | CT Report ---
PROCEDURE: CHEST WO INDICATIONS: OTHER DISORDERS OF LUNG TECHNIQUE: Noncontrast 1mm axial images were acquired from the pulmonary apices to the posterior costophrenic an gles. Axial 5 mm soft tissue kernel reconstructions were performed as well as 8 mm axial MIP and cor onal and sagittal 5 mm reformations. For radiation dose reduction, the following was used: automate d exposure control, adjustment of mA and/or kV according to patient size. COMPARISON: CT 10/25/2018 FINDINGS: Image quality: Excellent. Lungs and pleura: No consolidation. No pleural effusions. No pneumothorax. No suspicious pulmonary n odules which require follow up. Stable solid and part solid nodule. Smooth interstitial thickening a nd bronchial thickening. Mediastinum: Heart size is normal. No pericardial effusion. Stable calcified intimal flap of the desc ending aorta, without aneurysmal dilation. Extensive atherosclerotic disease and three-vessel coronar y calcifications. No mediastinal adenopathy by size criteria. Chest wall and lower neck: Thyroid is unremarkable. No axillary or supraclavicular adenopathy by size . Bones: No aggressive osseous abnormality. Upper Abdomen: Unremarkable. IMPRESSION: Moderate pulmonary edema, smooth interstitial thickening and bronchial thickening. Stable pulmonary nodules. Reviewed by: Rocael Martinez on 12/16/2022 4:42 PM PDT Approved by: Rocael Martinez on 12/16/2022 4:42 PM PDT Station ID: [id number]
== END 2022-12-16 09:56 | disposition home or self-care (01) ==
LOC: DI 09:55
PROVIDERS: ATTEND Nurse Practitioner Family
DX: J98.4 Other disorders of lung (principal); J81.1 Chronic pulmonary edema; R91.8 Other nonspecific abnormal finding of lung field

== ENCOUNTER 2023-04-19 09:22 | Outpatient (CLI) | payer MEDICARE, OTHER ==
--- NOTE | 2023-04-19 20:15 | XRAY Report ---
PROCEDURE: Cervical Spine 2 View INDICATIONS: NECK PAIN TECHNIQUE: 3 views of the cervical spine were obtained. COMPARISON: None FINDINGS: Bones: Vertebral body height and alignment is maintained. No evidence of traumatic malalignment. Mid cervical spine degenerative disc space narrowing and hypertrophic facet joints Soft tissues: No prevertebral soft tissue swelling. 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
== END 2023-04-19 09:23 | disposition home or self-care (01) ==
LOC: DI 09:22
PROVIDERS: ATTEND Internal Medicine
DX: M47.812 Spondylosis without myelopathy or radiculopathy, cervical region (principal); M50.30 Other cervical disc degeneration, unspecified cervical region

== ENCOUNTER 2023-05-22 10:03 | Inpatient (IN) | payer MEDICARE, OTHER ==
[2023-05-22] MEDS ORDERED: IPRATROPIUM/ALBUTEROL 3 ML NEB INH STA ×2 (10:41→10:43)
[2023-05-22] MEDS ORDERED: IPRATROPIUM/ALBUTEROL 3 ML NEB INH ONE (10:44)
--- NOTE | 2023-05-22 10:49 | ED Physician Documentation ---
PD HPI DYSPNEA - Stated complaint Stated Complaint: SOA - Chief complaint Chief Complaint: Resp - History obtained from History obtained from: Patient - History of Present Illness Timing - onset: Yesterday Timing - onset during: Light activity Timing - duration: Days (2) Timing - details: Gradual onset (The patient had gradual but quick progression of wheezing and dyspnea increased with activity over the last 1-1/2 days. She does have COPD and has noticed a feeling of some cough and aches. She felt chilled at home. Did not take her temperature. Significantly dyspneic despite home inhalers.), Still present Inciting event(s): URI (Some feeling of viral type illness with aches and congestion and mild cough.). No: Out of meds Improved by: Rest. No: Inhaler/neb Worsened by: Exertion, Coughing. No: Laying flat Associated symptoms: Cough, Wheezing. No: Fever (but some chills), Hemoptysis, Palpitations, Bilateral edema Similar symptoms before: Diagnosis (feels like exac of COPD but has not had dyspnea to this degree in the past. Typical active and maintains with MDI and baseline inhalers. No history o CHF.) Review of Systems Constitutional: reports: Chills, Myalgias. denies: Fever Nose: reports: Congestion Throat: denies: Sore throat Cardiac: denies: Palpitations, Pedal edema, Calf pain Respiratory: reports: Dyspnea, Cough, Wheezing GI: denies: Abdominal Pain, Vomiting, Diarrhea Skin: denies: Rash, Lesions Neurologic: reports: Generalized weakness. denies: Altered mental status, Headache PD PAST MEDICAL HISTORY - Past Medical History Past Medical History: Yes Cardiovascular: Hypertension, High cholesterol, Coronary artery disease, Other Respiratory: COPD (stable without home oxygen nor prior hospitalizations for COPD itself. 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, Tubal ligation Cardiovascular: Angioplasty, Other - Present Medications Home Medications: Ambulatory Orders Medication Instructions Recorded Confirmed Aspirin [Sherrie] 325 mg PO ONCE 12/13/13 06/23/18 Cetirizine [ZyrTEC] 10 mg PO ONCE 12/13/13 06/23/18 Fluticasone/Salmeterol 100/50 60 puffs INH BID 12/13/13 06/23/18 [Advair 100 Mcg/50 Mcg] Losartan [Cozaar] 50 mg PO DAILY 12/13/13 06/23/18 Simvastatin [Zocor] 40 mg PO DAILY 12/13/13 06/23/18 Ipratropium/Albuterol [Duoneb] 1 neb INH PRN 09/04/14 09/11/14 Multivitamin [Daily Multiple 1 each PO DAILY 09/04/14 09/11/14 Vitamin] Saccharomyces Boulardii [Florastor] 250 mg PO DAILY 09/11/14 09/11/14 - Allergies Allergies/Adverse Reactions: Allergies Allergy/AdvReac Type Severity Reaction Status Date / Time No Known Drug Allergies Allergy Verified 05/22/23 10:31 - Social History Does the pt smoke?: No Smoking Status: Never smoker Does the pt drink ETOH?: No Does the pt have substance abuse?: No - Immunizations Immunizations are current?: Yes - POLST Patient has POLST: Yes PD ED PE NORMAL - Vitals Vital signs reviewed: Yes - General General: Alert and oriented X 3, Well developed/nourished, Other (She is tachypneic with some accessory muscle use and partial sentence conversational dyspnea. Heart rate is regular but tachycardic. O2 sat initially 71% on room air with good reading.) - Neck Neck: Supple, no meningeal sign, No adenopathy - Cardiac Cardiac: No murmur. No: RRR (regular but tachycardic. ) - Respiratory Respiratory: Other (diffuse wheezing and prolonged exp phase, without coarse sounds nor fine crackles. Bases are clear. ) - Abdomen Abdomen: Soft, Non tender - Extremities Extremities: No edema, No calf tenderness / cord - Neuro Neuro: Alert and oriented X 3, No motor deficit, Normal speech Results - Vitals Vitals: Vital Signs - 24 hr 05/22/23 05/22/23 05/22/23 10:28 10:48 11:00 Temperature 37 C Heart Rate 111 H 108 H 100 Respiratory 28 H 20 26 H Rate Blood Pressure 115/55 L 125/71 O2 Saturation 71 L 95 If not protocol 4 6 : Oxygen Flow, liters/minute 05/22/23 05/22/23 05/22/23 12:00 12:17 13:00 Temperature Heart Rate 106 H 100 102 H Respiratory 26 H 20 28 H Rate Blood Pressure 114/66 107/62 O2 Saturation 95 87 L If not protocol 6 : Oxygen Flow, liters/minute 05/22/23 05/22/23 13:35 14:00 Temperature Heart Rate 94 102 H Respiratory 20 26 H Rate Blood Pressure 105/52 L O2 Saturation 93 If not protocol 4 4 : Oxygen Flow, liters/minute Oxygen O2 Source Nasal cannula Oxygen Flow Rate 4 - EKG (time done) 11:45 EKG releavant findings:: EKG personally interpreted by author of this note. Relevant findings are: Rate: Rate (enter#) (1021) Rhythm: Sinus tachycardia [place]: Normal Intervals: Normal [place] QRS: Normal Ischemia: Normal ST segments. No: ST elevation c/w ischemia, ST depression - Labs Labs: Laboratory Tests 05/22/23 05/22/23 05/22/23 10:47 10:47 10:47 WBC 10.1 RBC 4.47 Hgb 14.0 Hct 40.9 MCV 91.5 MCH 31.3 H MCHC 34.2 RDW 15.0 Plt Count 272 MPV 9.0 Neut # (Auto) 8.5 H Lymph # (Auto) 0.3 L [place] # (Auto) 1.1 H Eos # (Auto) 0.1 Baso # (Auto) 0.1 Absolute Nucleated RBC 0.00 Nucleated RBC % 0.0 Sodium 131 L Potassium 4.2 Chloride 95 L Carbon Dioxide 25 Anion Gap 11.0 BUN 11 Creatinine 0.7 Estimated GFR (MDRD) 80 L Glucose 134 H Calcium 8.9 Magnesium 1.6 L Total Bilirubin 0.6 AST 19 ALT 12 Alkaline Phosphatase 66 B-Natriuretic Peptide 212 H Total Protein 7.3 Albumin 4.2 Globulin 3.1 Albumin/Globulin Ratio 1.4 Lipase 22 Nasal Adenovirus (PCR) Nasal B. parapertussis DNA (PCR) Nasal Coronavir 229E PCR Nasal Coronavir HKU1 PCR Nasal Coronavir NL63 PCR Nasal Coronavir OC43 PCR Nasal Enterovir/Rhinovir PCR Nasal Influ A H1 2009 PCR Nasal Influenza B PCR Nasal Parainfluen 1 PCR Nasal Parainfluen 2 PCR Nasal Parainfluen 3 PCR Nasal Parainfluen 4 PCR Nasal RSV (PCR) Nasal B.pertussis DNA PCR Nasal C.pneumoniae (PCR) Shantanu Human Metapneumo PCR Nasal M.pneumoniae (PCR) Nasal SARS-CoV-2 (PCR) 05/22/23 10:47 WBC RBC Hgb Hct MCV MCH MCHC RDW Plt Count MPV Neut # (Auto) Lymph # (Auto) [place] # (Auto) Eos # (Auto) Baso # (Auto) Absolute Nucleated RBC Nucleated RBC % Sodium Potassium Chloride Carbon Dioxide Anion Gap BUN Creatinine Estimated GFR (MDRD) Glucose Calcium Magnesium Total Bilirubin AST ALT Alkaline Phosphatase B-Natriuretic Peptide Total Protein Albumin Globulin Albumin/Globulin Ratio Lipase Nasal Adenovirus (PCR) NOT DETECTED Nasal B. parapertussis DNA (PCR) NOT DETECTED Nasal Coronavir 229E PCR NOT DETECTED Nasal Coronavir HKU1 PCR NOT DETECTED Nasal Coronavir NL63 PCR NOT DETECTED Nasal Coronavir OC43 PCR NOT DETECTED Nasal Enterovir/Rhinovir PCR NOT DETECTED Nasal Influ A H1 2009 PCR DETECTED A Nasal Influenza B PCR NOT DETECTED Nasal Parainfluen 1 PCR NOT DETECTED Nasal Parainfluen 2 PCR NOT DETECTED Nasal Parainfluen 3 PCR NOT DETECTED Nasal Parainfluen 4 PCR NOT DETECTED Nasal RSV (PCR) NOT DETECTED Nasal B.pertussis DNA PCR NOT DETECTED Nasal C.pneumoniae (PCR) NOT DETECTED Shantanu Human Metapneumo PCR NOT DETECTED Nasal M.pneumoniae (PCR) NOT DETECTED Nasal SARS-CoV-2 (PCR) NOT DETECTED - Rads (name of study) chest xray Relevant Findings:: Prelim report reviewed (Some lower lloyd nodular infiltrates c/w atypical pneumonia. ), EMP independent interpretation of test PD Medical Decision Making - ED course Complexity details: reviewed results (Respiratory viral panel is positive for influenza. Negative for RSV and COVID. Chest x-ray does not show any obvious infiltrates effusion or pneumothorax. Basic blood tests including CBC and chemistry panel and BNP show a normal white count. BNP minimally elevated at 212. GFR 80/Cr 0.7), re-evaluated patient (The patient did have improvement in breathing after multiple nebulizers of DuoNeb, DuoNeb and albuterol. She did not seem to be tiring. Consideration for BiPAP initially was deemed unneeded after some treatments and oxygen.), considered differential (Onset of cough and aches and general weakness 1 to 2 days ago with significant increase overnight into this morning. History of COPD with flareup despite use of home inhaler and nebulizer. 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 Her initial oxygenation was 71% on room air. This did improve with nasal cannula supplement and then subsequently a DuoNeb did decrease her wheezing significantly. She was oxygenation at 95% with nasal cannula at 4 L. Her work of breathing did improve. Repeat nebulizers x 2 afforded stepwise improvement in her breathing and she is much more comfortable at this time. She does not have any accessory muscle use on reexam. Her oxygenation is holding well on the cannula. I did attempt to turn it off to see how she does and went within a couple of minutes back down to 86%. The nasal cannula oxygen was reinstituted and discussion with the patient is a she would likely need to be staying at the hospital for further treatment. She does not usually use home oxygen and her COPD is reasonably controlled with home medication. She does not have any pneumonia. She does have influenza. We discussed Tamiflu and she is agreeable. She was given dose of steroids for her COPD. I wrote initial orders for regular nebulizer treatments as well as her home medication. We will allow her to eat and drink. She and her are aware that she does have enough illness that appears to require hospitalization but we do not have any beds available at this point so she will be boarding here in the ER. Time of decision for admission was 13:10. Subsequently the hospital did have a bed available due to her transfer from the floor. I talked with the hospitalist, Dr. Joe, who is excepting the patient for hospitalization. Recheck of the patient showed she still remained comfortable with breathing with an oxygenation 92% on 3 L nasal cannula. - Critical Care Time(min): 45 Comments: work of breathing. Hypoxic and needed several resp treatments and supplemental oxyben. Time Includes: Direct patient care, Reassess patient, Document care, Medical consult Data interpretation: Labs, Pulse ox, CXR Procedures excluded from critical care time: EKG Departure - Departure Disposition: ED Place in Observation Clinical Impression: Acute exacerbation of COPD with asthma, Influenza A, Hypoxia, Dyspnea Condition: Stable Forms: PCP List
[2023-05-22] MEDS ORDERED: DEXAMETHASONE 10 MG/ML VIAL IVP STA (10:50)
[2023-05-22 10:54] LABS: BASOPHILS # (AUTO) 0.1 10^3/uL (0.0-0.1); BASOPHILS % (AUTO) 1.3 %; EOSINOPHILS # (AUTO) 0.1 10^3/uL (0.0-0.7); EOSINOPHILS % (AUTO) 0.6 %; HCT - HEMATOCRIT 40.9 % (37.0-47.0); LYMPHOCYTES # (AUTO) 0.3 10^3/uL (1.5-3.5); LYMPHOCYTES % (AUTO) 2.8 %; MEAN CORPUSCULAR HEMOGLOBIN 31.3 pg (27.0-31.0); MEAN CORPUSCULAR HGB CONC 34.2 g/dL (32.0-36.0); MEAN CORPUSCULAR VOLUME 91.5 fL (81.0-99.0); MONOCYTES # (AUTO) 1.1 10^3/uL (0.0-1.0); MONOCYTES % (AUTO) 11.3 %; NEUTROPHILS # (AUTO) 8.5 10^3/uL (1.5-6.6); NEUTROPHILS % (AUTO) 83.5 %; PLT - PLATELET COUNT 272 10^3/uL (130-450); RED BLOOD COUNT 4.47 10^6/uL (4.20-5.40); WHITE BLOOD COUNT 10.1 x10^3/uL (4.8-10.8)
[2023-05-22 11:06] LABS: ALBUMIN 4.2 g/dL (3.2-5.5); ALBUMIN/GLOBULIN RATIO 1.4 (1.0-2.2); BILIRUBIN,TOTAL 0.6 mg/dL (0.2-1.0); CALCIUM 8.9 mg/dL (8.5-10.3); CREATININE 0.7 mg/dL (0.6-1.3); MAGNESIUM 1.6 mg/dL (1.7-2.3); POTASSIUM 4.2 mmol/L (3.5-4.5); TOTAL PROTEIN 7.3 g/dL (6.4-8.9)
[2023-05-22 11:48] LABS: CORONAVIRUS 229E-RESP PCR NOT DETECTED; CORONAVIRUS HKU1-RESP PCR NOT DETECTED; CORONAVIRUS NL63-RESP PCR NOT DETECTED; CORONAVIRUS OC43-RESP PCR NOT DETECTED; HUMAN METAPNEUMOVIRUS NOT DETECTED; RHINOVIRUS/ENTEROVIRUS NOT DETECTED; SARS-CoV-2 -RESP PCR PANEL NOT DETECTED
[2023-05-22 11:49] LABS: B. PARAPERTUSSIS- RESP PCR PAN NOT DETECTED; B. PERTUSSIS- RESP PCR PANEL NOT DETECTED; C. PNEUMONIAE- RESP PCR PANEL NOT DETECTED; INFLUENZA A H1 2009- RESP PCR DETECTED; INFLUENZA B - RESP PCR PANEL NOT DETECTED; M. PNEUMONIAE- RESP PCR PANEL NOT DETECTED; PARAINFLUENZA VIRUS 1 NOT DETECTED; PARAINFLUENZA VIRUS 2 NOT DETECTED; PARAINFLUENZA VIRUS 3 NOT DETECTED; PARAINFLUENZA VIRUS 4 NOT DETECTED; RSV- RESP PCR PANEL NOT DETECTED
[2023-05-22] MEDS ORDERED: ALBUTEROL NEB 2.5 MG/3 ML INH STA ×2 (11:59→13:14)
--- NOTE | 2023-05-22 13:10 | XRAY Report ---
PROCEDURE: Chest 1V INDICATIONS: chest pain TECHNIQUE: One view of the chest was acquired. COMPARISON: Chest radiographs 06/23/[address] 12/16/2022. FINDINGS: Surgical changes and devices: None. Lungs and pleura: Mild bilateral reticulonodular opacities may be chronic versus secondary to irregu lar atypical pneumonia. No pleural effusion or pneumothorax. Mediastinum: Mediastinal contours appear normal. Heart size is normal. Bones and chest wall: No suspicious bony lesions. Overlying soft tissues appear unremarkable. Hum eral head abuts the undersurface of the acromion. Postsurgical widening of the right acromioclavicula r joint. IMPRESSION: Mild bilateral reticulonodular opacities may be chronic versus secondary to a viral or atypical pneum onia. Reviewed by: Jarred Garcia MD on 05/22/2023 1:09 PM PST Approved by: Jarred Garcia MD on 05/22/2023 1:09 PM PST Station ID: [id number]
[2023-05-22] MEDS ORDERED: OSELTAMIVIR 75 MG CAPSULE PO STA (13:15)
[2023-05-22] MEDS ORDERED: tiZANidine 4 MG TABLET PO SCH (14:00)
[2023-05-22] MEDS ORDERED: ACETAMINOPHEN 325 MG TABLET PO PRN (15:52)
[2023-05-22] MEDS ORDERED: SODIUM CHLORIDE FLUSH 0.9% 10 ML SYRINGE IVP PRN (15:52)
[2023-05-22] MEDS ORDERED: oxyCODONE 5 MG TABLET PO PRN (15:52)
[2023-05-22] MEDS ORDERED: ONDANSETRON 4 MG/2 ML VIAL IVP PRN (15:52)
[2023-05-22] MEDS ORDERED: ONDANSETRON ODT 4 MG TABLET TL PRN (15:52)
--- NOTE | 2023-05-22 15:56 | HISTORY & PHYSICAL EXAMINATION ---
Chief Complaint - Chief Complaint Chief Complaint: cough and sob History of Present Illness - Admitted From Admitted From:: home - History Obtained From Records Reviewed: [facility] History obtained from: Dr. Block Exam Limitations: none - History of Present Illness HPI Comment/Other: 83-year-old female who smokes half a pack a day all of her life. She was admitted in August 2014 for acute respiratory failure associated with bronchitis. She now comes back to our emergency room with a gradual onset of cough, congestion, body aching. She started wheezing. All of this was over the last 2 days. She started taking her inhaler with increasing frequency and it was not helping. Every time she tries to get up and do something simple like get up to walk to the bathroom the wheezing and coughing are uncontrolled. It takes her a very long time to sit down and get over an attack. There has been no phlegm with this. No blood in her cough. She denies chest pain, palpitations, orthopnea, edema. As far she knows she has never had a heart problem. She does share with me that this is the worst she is ever felt with coughing and wheezing. This is even worse than the August 2014 admission.Appetite is still okay. She does get hungry. No GI complaints with this. In the emergency room temperature was 37, heart rate 111, respirations 28, room air saturation was 71%. She has been placed on nasal cannula to bring her O2 sat and she is requiring 4 L to bring her up to 94%. She is an alert oriented elderly female who has some accessory muscle use, can carry on partial sentence structure conversation. She is tachycardic. Diffuse wheezing on lung exam but no rhonchi or or crackles. Chest x-ray does not have pneumonia. White cell count is 10.1. BUN and creatinine are normal. BNP 212. Viral panel is positive for influenza A. I discussed the case with the emergency room provider. He is asking me to bring the patient into the hospital to treat her acute hypoxia and obstruction. She has received 2 nebulizers in the ER and she is breathing better, so I will place her in observation to see if continue nebulizer treatment and steroid treatment will turn the corner for her to be discharged tomorrow. History - Past Medical History Cardiovascular: reports: Hypertension, High cholesterol, Coronary artery disease, Other Respiratory: reports: COPD (stable without home oxygen nor prior hospitalizations for COPD itself. ), Pneumonia Endocrine/Autoimmune: reports: None GI: reports: None MANAGER SCHEDULING: reports: Other () : reports: None HEENT: reports: None Psych: reports: None Musculoskeletal: reports: None Derm: reports: None MRSA Hx?: No - Past Surgical History General: reports: Colonoscopy Ortho: reports: Rotator cuff repair /MANAGER SCHEDULING: reports: section, Tubal ligation Cardiovascular: reports: Angioplasty, Other - Family & Social History Family History Comment/Other: Mom at age 68 of a heart attack. Dad at 72 of a stroke. There are 8 siblings altogether. 5 are and she says that most of them have of complications of diabetes. 3 grown sons that are all healthy without heart attack, stroke, diabetes, hypertension Living arrangement: At home Living Situation: With spouse/s.o. Social History Notes: Born and raised in [facility] [place]. Left there to come to the [facility] in [place]. Smokes half a pack a day all of her life. No history of alcohol abuse or recreational substance abuse.No history of recreational substance abuse. She and her live in their own home - POLST Patient has POLST: No POLST Status: Full Code Meds/Allgy - Home Medications Home Medications: Ambulatory Orders Medication Instructions Recorded Confirmed Aspirin [Sherrie] 325 mg PO ONCE 12/13/13 06/23/18 Cetirizine [ZyrTEC] 10 mg PO ONCE 12/13/13 06/23/18 Fluticasone/Salmeterol 100/50 60 puffs INH BID 12/13/13 06/23/18 [Advair 100 Mcg/50 Mcg] Losartan [Cozaar] 50 mg PO DAILY 12/13/13 06/23/18 Simvastatin [Zocor] 40 mg PO DAILY 12/13/13 06/23/18 Ipratropium/Albuterol [Duoneb] 1 neb INH PRN 09/04/14 09/11/14 Multivitamin [Daily Multiple 1 each PO DAILY 09/04/14 09/11/14 Vitamin] Saccharomyces Boulardii [Florastor] 250 mg PO DAILY 09/11/14 09/11/14 - Allergies Allergies/Adverse Reactions: Allergies Allergy/AdvReac Type Severity Reaction Status Date / Time No Known Drug Allergies Allergy Verified 05/22/23 10:31 Review of Systems - Constitutional Constitutional: reports: Fatigue, Fever, Chills, Malaise, Weakness - Eyes Eyes: denies: Pain, Irritation, Amaurosis, Vision loss, Dipolpia - Ears, Nose & Throat Ears, Nose & Throat: reports: Nasal obstruction, Nasal congestion, Sore throat. denies: Ear pain, Hearing loss, Nasal discharge, Hoarseness - Cardiovascular Cariovascular: reports: Exertional dyspnea, Decr. exercise tolerance. denies: Irregular heart rate, Palpitations, Chest pain, Edema - Respiratory Respiratory: reports: Cough, SOB at rest, SOB with exertion. denies: Sputum production - Gastrointestinal Gastrointestinal: denies: Abdominal pain, Abdominal distention, Constipation, Diarrhea - Genitourinary Genitourinary: reports: Incontinence. denies: Frequency, Urgency, Flank pain, Nocturia - Musculoskeletal Musculoskeletal: reports: Muscle aches, Joint pain (As she has gotten older. They just get stiffer). denies: Muscle pain, Back pain - Integumentary Integumentary: denies: Rash, Pruritis, Lesions - Neurological Neurological: reports: Headache. denies: General weakness, Focal weakness, Memory problems, Pre-existing deficit, Seizures, Incoordination - Psychiatric Psychiatric: denies: Depression, Anxiety - Endocrine Endocrine: denies: Polyuria, Polydypsia, Polyphagia - Hematologic/Lymphatic Hematologic/Lymphatic: denies: Anemia, Bruising Prior Level of Functionality: Completely independent with activities of daily living. She still cleans house, drives a car, does laundry, cooking. No use of durable medical equipment other than her nebulizer for her breathing medicines Exam - Vital Signs Reviewed Vital Signs: Yes Vital Signs: Vital Signs x48h Temp Pulse Resp BP Pulse Ox O2 Flow Rate 05/22/23 14:00 102 H 26 H 105/52 L 93 4 05/22/23 13:35 94 20 4 05/22/23 13:00 102 H 28 H 107/62 87 L 05/22/23 12:17 100 20 05/22/23 12:00 106 H 26 H 114/66 95 6 05/22/23 11:00 100 26 H 125/71 95 6 05/22/23 10:48 108 H 20 4 05/22/23 10:28 37 C 111 H 28 H 115/55 L 71 L - Physical Exam General Appearance: positive: Alert, Mild distress, Other ( Short statured female who is sleeping, turned over on the right side, wheezing in her sleep. Wakes up easily and wheezing increases.) Eyes Bilateral: positive: PERRL, EOMI ENT: positive: No signs of dehydration Neck: positive: No JVD. negative: Stiff neck Respiratory: positive: Wheezes, Rhonchi Cardiovascular: positive: Regular rate & rhythm Peripheral Pulses: positive: 1+ Abdomen: positive: Non-tender, No organomegaly, Nml bowel sounds, No distention Skin: positive: Warm, Dry Extremities: positive: Full ROM, No pedal edema (Nor does she have clubbing) Neurologic/Psychiatric: positive: Oriented x3, CN's nml (2-12), Motor nml Conclusion/Plan - Problem List (1) Acute respiratory failure with hypoxia Conclusion/Plan: Due to COPD exacerbationformer smoker. My treatment will consist of treating the underlying causes a problem #2 and problem #3. She is full CODE STATUS Observation status (2) Acute exacerbation of COPD with asthma Conclusion/Plan: Due to influenza A. Plan: Solu-Medrol 40 mg IV push 3 times daily DuoNeb every 4 hours as needed (3) Influenza A Conclusion/Plan: Tamiflu 30 mg p.o. twice daily for 5 days (4) History of hypertension Conclusion/Plan: Her current blood pressure is 107 systolic. I will hold off on resuming her home Cozaar until blood pressure rebounds greater than 130. - Lab Results Lab results reviewed: Yes Fish Bones: 05/22/23 10:47 05/22/23 10:47 - Diagnostic Imaging Results Diagnostic Imaging Results: positive: Final report reviewed Core Measures - Anticipated LOS I expect patient to be DC'd or transferred within 96 hours.: Yes - DVT/VTE - Prophylaxis VTE/DVT Device ordered at admit?: Yes
[2023-05-22] MEDS: SODIUM CHLORIDE FLUSH 0.9% 10 ML SYRINGE IVP SCH ×2 (16:36→23:22)
[2023-05-22] MEDS: SODIUM CHLORIDE 0.9% 1,000 ML IV SCH (16:36)
[2023-05-22] MEDS ORDERED: ALBUTEROL NEB 2.5 MG/3 ML INH SCH (17:00)
[2023-05-22] MEDS ORDERED: dexAMETHasone 4 MG TABLET PO SCH (21:00)
[2023-05-22] MEDS: OSELTAMIVIR 30 MG CAPSULE PO SCH (21:00)
[2023-05-22] MEDS ORDERED: OSELTAMIVIR 75 MG CAPSULE PO SCH (21:00)
[2023-05-23] MEDS: SODIUM CHLORIDE 0.9% 1,000 ML IV SCH ×2 (04:25→16:03)
[2023-05-23 06:18] LABS: BASOPHILS % (AUTO) 0.3 %; HCT - HEMATOCRIT 38.6 % (37.0-47.0); LYMPHOCYTES # (AUTO) 0.5 10^3/uL (1.5-3.5); LYMPHOCYTES % (AUTO) 6.8 %; MEAN CORPUSCULAR HEMOGLOBIN 30.7 pg (27.0-31.0); MEAN CORPUSCULAR HGB CONC 33.7 g/dL (32.0-36.0); MEAN CORPUSCULAR VOLUME 91.3 fL (81.0-99.0); MEAN PLATELET VOLUME 9.2 fL (7.9-10.8); MONOCYTES % (AUTO) 15.3 %; NEUTROPHILS # (AUTO) 5.1 10^3/uL (1.5-6.6); NEUTROPHILS % (AUTO) 77.4 %; PLT - PLATELET COUNT 276 10^3/uL (130-450); RED BLOOD COUNT 4.23 10^6/uL (4.20-5.40); WHITE BLOOD COUNT 6.6 x10^3/uL (4.8-10.8)
[2023-05-23 06:20] LABS: CALCIUM 8.6 mg/dL (8.5-10.3); CREATININE 0.5 mg/dL (0.6-1.3); POTASSIUM 4.3 mmol/L (3.5-4.5)
--- NOTE | 2023-05-23 08:20 | PHARMACY PROGRESS NOTE ---
- Best Possible Medication History Admit Date and Time: 05/22/23 1552 Processed by: Pharmacy Medication History completed: Yes Patient Interview: Pt unable to participate Secondary Source(s): Pharmacy records, Insurance records As the person ultimately responsible for medication therapy, providers are able to order a medication from an existing home medication list in [facility] via the "Reconcile Routine" prior to Confirmation of that medication by sales support specialist. Such practice is discouraged except when the physician, in their clinical judgment, deems that a medical need exists for a medication without regard to previous use.
[2023-05-23] MEDS ORDERED: CLOPIDOGREL 75 MG TABLET PO SCH (09:00)
[2023-05-23] MEDS ORDERED: LOSARTAN 50 MG TABLET PO SCH (09:00)
[2023-05-23] MEDS ORDERED: METOPROLOL SUCCINATE 25 MG TABLET PO SCH (09:00)
[2023-05-23] MEDS ORDERED: metFORMIN 500 MG TABLET PO SCH (09:00)
[2023-05-23] MEDS ORDERED: ASPIRIN EC 81 MG TABLET PO SCH (09:00)
[2023-05-23] MEDS: SODIUM CHLORIDE FLUSH 0.9% 10 ML SYRINGE IVP SCH ×2 (09:14→16:46)
[2023-05-23] MEDS: OSELTAMIVIR 30 MG CAPSULE PO SCH ×2 (09:14→21:29)
--- NOTE | 2023-05-23 11:19 | PROVIDER PROGRESS NOTE ---
Subjective - Prog Note Date Prog Note Date: 05/23/23 Prog Note Time: 11:22 - Subjective Subjective: she is still coughing, sob. but asking to get out of bed and walk the hallway w 02. she is eating well. getting up results in more tachypnea and hypoxia. Current Medications - Current Medications Current Medications: Active Medications Acetaminophen (Acetaminophen 325 Mg Tablet) 650 mg PO Q4HR PRN PRN Reason: Pain 1 to 4, or Fever Sodium Chloride (Normal Saline 0.9%) 1,000 mls @ 83.33 mls/hr IV .Q12H1M [facility] Last Admin: 05/23/23 04:25 Dose: 83.33 mls/hr Methylprednisolone (Methylprednisolone Succinate 40 Mg/Ml Vial) 40 mg IVP TID [facility] Ondansetron HCl (Ondansetron Odt 4 Mg Tablet) 4 mg TL Q6HR PRN PRN Reason: Nausea / Vomiting Ondansetron HCl (Ondansetron 4 Mg/2 Ml Vial) 4 mg IVP Q6HR PRN PRN Reason: Nausea / Vomiting Oseltamivir Phosphate (Oseltamivir 30 Mg Capsule) 30 mg PO BID [facility] Last Admin: 05/23/23 09:14 Dose: 30 mg Oxycodone HCl (Oxycodone 5 Mg Tablet) 5 mg PO Q4HR PRN PRN Reason: Pain 5 to 7 Sodium Chloride (Sodium Chloride Flush 0.9% 10 Ml Syringe) 10 ml IVP PRN PRN PRN Reason: NEEDED PER PROVIDER ORDERS Sodium Chloride (Sodium Chloride Flush 0.9% 10 Ml Syringe) 10 ml IVP 0100,0900,1700 [facility] Last Admin: 05/23/23 09:14 Dose: Not Given Losartan [Cozaar] 12.5 mg PO DAILY 12/13/13 Albuterol Sulfate [Proair Respiclick] 1 - 2 puffs INH Q4H PRN 05/23/23 Aspirin EC [Ecotrin] 81 mg PO DAILY 05/23/23 Atorvastatin Calcium 40 mg PO QPM 05/23/23 Clopidogrel [Plavix] 75 mg PO DAILY 05/23/23 Metoprolol Succinate [Toprol Xl] 25 mg PO DAILY 05/23/23 metFORMIN [Glucophage] 500 mg PO DAILY 05/23/23 Objective - Vital Signs/Intake & Output Reviewed Vital Signs: Yes Vital Signs: Vital Signs x48h Temp Pulse Resp BP Pulse Ox O2 Flow Rate 05/23/23 10:18 37.2 C 101 H 18 141/70 H 93 3 05/23/23 09:00 37.2 C 108 H 20 134/104 H 95 3 05/23/23 05:42 36.5 C 88 20 117/69 96 Intake & Output: Intake & Output 05/20/23 05/21/23 05/22/23 05/23/23 23:59 23:59 23:59 23:59 Intake Total 1524.683 Balance 1524.683 - Objective General Appearance: positive: Alert, Mild distress (cough, congestion, wheezing audible even w/o stethescope) Eyes Bilateral: positive: PERRL, EOMI ENT: positive: No signs of dehydration Neck: positive: No JVD. negative: Stiff neck Respiratory: positive: Wheezes, Rhonchi Cardiovascular: positive: Regular rate & rhythm, Tachycardia (occasional) Abdomen: positive: Non-tender, No organomegaly, Nml bowel sounds, No distention Skin: positive: Warm, Dry. negative: Pallor Extremities: positive: Full ROM, No pedal edema Neurologic/Psychiatric: positive: Oriented x3, Motor nml. negative: CN's nml (2-12) (Left facial dropp is chronic w occ twitching. 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) - Lab Results Fish Bones: 05/23/23 05:47 05/23/23 05:47 Other Labs: Lab Results x24hrs 05/23/23 05/23/23 05/22/23 Range/Units 05:47 05:47 10:47 WBC 6.6 (4.8-10.8) x10^3/uL RBC 4.23 (4.20-5.40) 10^6/uL Hgb 13.0 (12.0-16.0) g/dL Hct 38.6 (37.0-47.0) % MCV 91.3 (81.0-99.0) fL MCH 30.7 (27.0-31.0) pg MCHC 33.7 (32.0-36.0) g/dL RDW 15.0 (12.0-15.0) % Plt Count 276 (130-450) 10^3/uL MPV 9.2 (7.9-10.8) fL Neut # (Auto) 5.1 (1.5-6.6) 10^3/uL Lymph # (Auto) 0.5 L (1.5-3.5) 10^3/uL [place] # (Auto) 1.0 (0.0-1.0) 10^3/uL Eos # (Auto) 0.0 (0.0-0.7) 10^3/uL Baso # (Auto) 0.0 (0.0-0.1) 10^3/uL Absolute Nucleated RBC 0.00 x10^3/uL Nucleated RBC % 0.0 /100WBC Sodium 135 (135-145) mmol/L Potassium 4.3 (3.5-4.5) mmol/L Chloride 101 (101-111) mmol/L Carbon Dioxide 26 (21-32) mmol/L Anion Gap 8.0 (6-13) BUN 13 (6-20) mg/dL Creatinine 0.5 L (0.6-1.3) mg/dL Estimated GFR (MDRD) 118 (>89) Glucose 106 H (74-104) mg/dL Calcium 8.6 (8.5-10.3) mg/dL Magnesium (1.7-2.3) mg/dL Total Bilirubin (0.2-1.0) mg/dL AST (10-42) IU/L ALT (10-60) IU/L Alkaline Phosphatase (42-121) IU/L B-Natriuretic Peptide (5-100) pg/mL Total Protein (6.4-8.9) g/dL Albumin (3.2-5.5) g/dL Globulin (2.1-4.2) g/dL Albumin/Globulin Ratio (1.0-2.2) Lipase (11-82) U/L Nasal Adenovirus (PCR) NOT DETECTED Nasal B. parapertussis DNA (PCR) NOT DETECTED Nasal Coronavir 229E PCR NOT DETECTED Nasal Coronavir HKU1 PCR NOT DETECTED Nasal Coronavir NL63 PCR NOT DETECTED Nasal Coronavir OC43 PCR NOT DETECTED Nasal Enterovir/Rhinovir PCR NOT DETECTED Nasal Influ A H1 2009 PCR DETECTED A Nasal Influenza B PCR NOT DETECTED Nasal Parainfluen 1 PCR NOT DETECTED Nasal Parainfluen 2 PCR NOT DETECTED Nasal Parainfluen 3 PCR NOT DETECTED Nasal Parainfluen 4 PCR NOT DETECTED Nasal RSV (PCR) NOT DETECTED Nasal B.pertussis DNA PCR NOT DETECTED Nasal C.pneumoniae (PCR) NOT DETECTED [place] Human Metapneumo PCR NOT DETECTED Nasal M.pneumoniae (PCR) NOT DETECTED Nasal SARS-CoV-2 (PCR) NOT DETECTED 05/22/23 05/22/23 05/22/23 Range/Units 10:47 10:47 10:47 WBC 10.1 (4.8-10.8) x10^3/uL RBC 4.47 (4.20-5.40) 10^6/uL Hgb 14.0 (12.0-16.0) g/dL Hct 40.9 (37.0-47.0) % MCV 91.5 (81.0-99.0) fL MCH 31.3 H (27.0-31.0) pg MCHC 34.2 (32.0-36.0) g/dL RDW 15.0 (12.0-15.0) % Plt Count 272 (130-450) 10^3/uL MPV 9.0 (7.9-10.8) fL Neut # (Auto) 8.5 H (1.5-6.6) 10^3/uL Lymph # (Auto) 0.3 L (1.5-3.5) 10^3/uL [place] # (Auto) 1.1 H (0.0-1.0) 10^3/uL Eos # (Auto) 0.1 (0.0-0.7) 10^3/uL Baso # (Auto) 0.1 (0.0-0.1) 10^3/uL Absolute Nucleated RBC 0.00 x10^3/uL Nucleated RBC % 0.0 /100WBC Sodium 131 L (135-145) mmol/L Potassium 4.2 (3.5-4.5) mmol/L Chloride 95 L (101-111) mmol/L Carbon Dioxide 25 (21-32) mmol/L Anion Gap 11.0 (6-13) BUN 11 (6-20) mg/dL Creatinine 0.7 (0.6-1.3) mg/dL Estimated GFR (MDRD) 80 L (>89) Glucose 134 H (74-104) mg/dL Calcium 8.9 (8.5-10.3) mg/dL Magnesium 1.6 L (1.7-2.3) mg/dL Total Bilirubin 0.6 (0.2-1.0) mg/dL AST 19 (10-42) IU/L ALT 12 (10-60) IU/L Alkaline Phosphatase 66 (42-121) IU/L B-Natriuretic Peptide 212 H (5-100) pg/mL Total Protein 7.3 (6.4-8.9) g/dL Albumin 4.2 (3.2-5.5) g/dL Globulin 3.1 (2.1-4.2) g/dL Albumin/Globulin Ratio 1.4 (1.0-2.2) Lipase 22 (11-82) U/L Nasal Adenovirus (PCR) Nasal B. parapertussis DNA (PCR) Nasal Coronavir 229E PCR Nasal Coronavir HKU1 PCR Nasal Coronavir NL63 PCR Nasal Coronavir OC43 PCR Nasal Enterovir/Rhinovir PCR Nasal Influ A H1 2009 PCR Nasal Influenza B PCR Nasal Parainfluen 1 PCR Nasal Parainfluen 2 PCR Nasal Parainfluen 3 PCR Nasal Parainfluen 4 PCR Nasal RSV (PCR) Nasal B.pertussis DNA PCR Nasal C.pneumoniae (PCR) [place] Human Metapneumo PCR Nasal M.pneumoniae (PCR) Nasal SARS-CoV-2 (PCR) ABX Reporting Has patient been on IV antibiotics over the past 48 hours?: No Assessment/Plan - Problem List (1) Acute respiratory failure with hypoxia Impression: Due to COPD exacerbationformer smoker. My treatment will consist of treating the underlying causes a problem #2 and problem #3. She is full CODE STATUS Plan: She is still wheezing, needing 3 to 4 L of nasal cannula oxygen. Changed to inpatient status For tobacco abuse she is asking for a nicotine patch and I will give her 7 mg (2) Acute exacerbation of COPD with asthma Conclusion/Plan: trigger is influenza A superimposed on COPD from smoking Plan: Solu-Medrol 40 mg IV push 3 times daily DuoNeb every 4 hours as needed (3) Influenza A Conclusion/Plan: Tamiflu 30 mg p.o. twice daily for 5 days. Today is Day #2 (4) History of hypertension Conclusion/Plan: Her current blood pressure is 107 systolic. I will hold off on resuming her home Cozaar until blood pressure rebounds greater than 130. Today's BP Selected Entries 05/23/23 05/23/23 09:00 10:18 Blood Pressure 134/104 H 141/70 H [Left Brachial artery] So I will resume her Cozaar.
[2023-05-23] MEDS: METOPROLOL SUCCINATE 25 MG TABLET PO SCH (11:39)
[2023-05-23] MEDS: LOSARTAN 50 MG TABLET PO SCH (11:39)
[2023-05-23] MEDS: NICOTINE 14 MG PATCH TOP SCH (11:39)
[2023-05-23] MEDS: methylPREDNISolone SUCCINATE 40 MG/ML VIAL IVP SCH ×2 (13:40→21:30)
[2023-05-23] MEDS: ATORVASTATIN 40 MG TABLET PO SCH (21:29)
[2023-05-24] MEDS: SODIUM CHLORIDE FLUSH 0.9% 10 ML SYRINGE IVP SCH ×3 (01:57→15:57)
[2023-05-24] MEDS: SODIUM CHLORIDE 0.9% 1,000 ML IV SCH ×2 (04:07→15:58)
[2023-05-24] MEDS: methylPREDNISolone SUCCINATE 40 MG/ML VIAL IVP SCH ×2 (05:23→20:31)
[2023-05-24 07:04] LABS: CALCIUM 8.5 mg/dL (8.5-10.3); CREATININE 0.4 mg/dL (0.6-1.3); POTASSIUM 4.1 mmol/L (3.5-4.5)
[2023-05-24 07:24] LABS: BASOPHILS % (AUTO) 0.2 %; HCT - HEMATOCRIT 40.1 % (37.0-47.0); HGB - HEMOGLOBIN 13.5 g/dL (12.0-16.0); LYMPHOCYTES # (AUTO) 0.5 10^3/uL (1.5-3.5); LYMPHOCYTES % (AUTO) 6.2 %; MEAN CORPUSCULAR HEMOGLOBIN 31.2 pg (27.0-31.0); MEAN CORPUSCULAR HGB CONC 33.7 g/dL (32.0-36.0); MEAN CORPUSCULAR VOLUME 92.6 fL (81.0-99.0); MEAN PLATELET VOLUME 9.3 fL (7.9-10.8); MONOCYTES # (AUTO) 0.4 10^3/uL (0.0-1.0); MONOCYTES % (AUTO) 4.1 %; NEUTROPHILS # (AUTO) 7.8 10^3/uL (1.5-6.6); NEUTROPHILS % (AUTO) 89.3 %; PLT - PLATELET COUNT 290 10^3/uL (130-450); RED BLOOD COUNT 4.33 10^6/uL (4.20-5.40); WHITE BLOOD COUNT 8.7 x10^3/uL (4.8-10.8)
[2023-05-24] MEDS: ASPIRIN EC 81 MG TABLET PO SCH (08:15)
[2023-05-24] MEDS: NICOTINE 14 MG PATCH TOP SCH (08:15)
[2023-05-24] MEDS: OSELTAMIVIR 30 MG CAPSULE PO SCH (08:15)
[2023-05-24] MEDS: LOSARTAN 50 MG TABLET PO SCH (08:15)
[2023-05-24] MEDS: CLOPIDOGREL 75 MG TABLET PO SCH (08:15)
[2023-05-24] MEDS: METOPROLOL SUCCINATE 25 MG TABLET PO SCH (08:16)
--- NOTE | 2023-05-24 10:58 | PROVIDER PROGRESS NOTE ---
Subjective - Prog Note Date Prog Note Date: 05/24/23 Prog Note Time: 11:02 - Subjective Pt reports feeling: Improved Subjective: Tired, still nasal tone of voice. Occasional spasmodic cough. But overall feels better than she did yesterday. She feels less tight in her chest and does not feel like she is gasping for air. Current Medications - Current Medications Current Medications: Active Medications Acetaminophen (Acetaminophen 325 Mg Tablet) 650 mg PO Q4HR PRN PRN Reason: Pain 1 to 4, or Fever Last Admin: 05/23/23 14:47 Dose: 650 mg Albuterol/Ipratropium (Ipratropium/Albuterol 3 Ml Neb) 3 ml INH Q4HR PRN PRN Reason: Wheezing Aspirin (Aspirin Ec 81 Mg Tablet) 81 mg PO DAILY [facility] Last Admin: 05/24/23 08:15 Dose: 81 mg Atorvastatin Calcium (Atorvastatin 40 Mg Tablet) 40 mg PO QPM [facility] Last Admin: 05/23/23 21:29 Dose: 40 mg Clopidogrel Bisulfate (Clopidogrel 75 Mg Tablet) 75 mg PO DAILY [facility] Last Admin: 05/24/23 08:15 Dose: 75 mg Sodium Chloride (Normal Saline 0.9%) 1,000 mls @ 83.33 mls/hr IV .Q12H1M [facility] Last Admin: 05/24/23 04:07 Dose: 83.33 mls/hr Losartan Potassium (Losartan 50 Mg Tablet) 12.5 mg PO DAILY [facility] Last Admin: 05/24/23 08:15 Dose: 12.5 mg Methylprednisolone (Methylprednisolone Succinate 40 Mg/Ml Vial) 40 mg IVP BID [facility] Stop: 05/25/23 09:01 Metoprolol Succinate (Metoprolol Succinate 25 Mg Tablet) 25 mg PO DAILY [facility] Last Admin: 05/24/23 08:16 Dose: 25 mg Nicotine (Nicotine 14 Mg Patch) 1 patch TOP DAILY [facility] Last Admin: 05/24/23 08:15 Dose: 1 patch Ondansetron HCl (Ondansetron Odt 4 Mg Tablet) 4 mg TL Q6HR PRN PRN Reason: Nausea / Vomiting Ondansetron HCl (Ondansetron 4 Mg/2 Ml Vial) 4 mg IVP Q6HR PRN PRN Reason: Nausea / Vomiting Oseltamivir Phosphate (Oseltamivir 75 Mg Capsule) 75 mg PO BID [facility] Oxycodone HCl (Oxycodone 5 Mg Tablet) 5 mg PO Q4HR PRN PRN Reason: Pain 5 to 7 Sodium Chloride (Sodium Chloride Flush 0.9% 10 Ml Syringe) 10 ml IVP PRN PRN PRN Reason: NEEDED PER PROVIDER ORDERS Sodium Chloride (Sodium Chloride Flush 0.9% 10 Ml Syringe) 10 ml IVP 0100,0900,1700 [facility] Last Admin: 05/24/23 08:16 Dose: Not Given Losartan [Cozaar] 12.5 mg PO DAILY 12/13/13 Albuterol Sulfate [Proair Respiclick] 1 - 2 puffs INH Q4H PRN 05/23/23 Aspirin EC [Ecotrin] 81 mg PO DAILY 05/23/23 Atorvastatin Calcium 40 mg PO QPM 05/23/23 Clopidogrel [Plavix] 75 mg PO DAILY 05/23/23 Metoprolol Succinate [Toprol Xl] 25 mg PO DAILY 05/23/23 metFORMIN [Glucophage] 500 mg PO DAILY 05/23/23 Objective - Vital Signs/Intake & Output Reviewed Vital Signs: Yes Vital Signs: Vital Signs x48h Temp Pulse Resp BP Pulse Ox O2 Flow Rate 05/24/23 08:20 36.6 C 90 20 122/87 H 92 4 Intake & Output: Intake & Output 05/21/23 05/22/23 05/23/23 05/24/23 23:59 23:59 23:59 23:59 Intake Total 3204.089 1000 Balance 3204.089 1000 - Objective General Appearance: positive: No acute distress, Alert (Was asleep when I walked in, but easily woke up to my voice. Able to sit herself up with standby assist.) Eyes Bilateral: positive: PERRL, EOMI ENT: positive: No signs of dehydration, Other (Nasal to voice, coryza less, rhinorrhea less) Neck: positive: No JVD Respiratory: positive: No respiratory distress, Wheezes Cardiovascular: positive: Regular rate & rhythm Abdomen: positive: Non-tender, No organomegaly, Nml bowel sounds, No distention Skin: positive: Warm, Dry Extremities: positive: Full ROM, No pedal edema Neurologic/Psychiatric: positive: Oriented x3, CN's nml (2-12), Motor nml - Lab Results Fish Bones: 05/24/23 06:10 05/24/23 06:10 Other Labs: Lab Results x24hrs 05/24/23 05/24/23 Range/Units 06:10 06:10 WBC 8.7 (4.8-10.8) x10^3/uL RBC 4.33 (4.20-5.40) 10^6/uL Hgb 13.5 (12.0-16.0) g/dL Hct 40.1 (37.0-47.0) % MCV 92.6 (81.0-99.0) fL MCH 31.2 H (27.0-31.0) pg MCHC 33.7 (32.0-36.0) g/dL RDW 15.0 (12.0-15.0) % Plt Count 290 (130-450) 10^3/uL MPV 9.3 (7.9-10.8) fL Neut # (Auto) 7.8 H (1.5-6.6) 10^3/uL Lymph # (Auto) 0.5 L (1.5-3.5) 10^3/uL [place] # (Auto) 0.4 (0.0-1.0) 10^3/uL Eos # (Auto) 0.0 (0.0-0.7) 10^3/uL Baso # (Auto) 0.0 (0.0-0.1) 10^3/uL Absolute Nucleated RBC 0.00 x10^3/uL Nucleated RBC % 0.0 /100WBC Sodium 135 (135-145) mmol/L Potassium 4.1 (3.5-4.5) mmol/L Chloride 101 (101-111) mmol/L Carbon Dioxide 27 (21-32) mmol/L Anion Gap 7.0 (6-13) BUN 13 (6-20) mg/dL Creatinine 0.4 L (0.6-1.3) mg/dL Estimated GFR (MDRD) 153 (>89) Glucose 115 H (74-104) mg/dL Calcium 8.5 (8.5-10.3) mg/dL ABX Reporting Has patient been on IV antibiotics over the past 48 hours?: No Assessment/Plan - Problem List (1) Acute respiratory failure with hypoxia Impression: Due to COPD exacerbationformer smoker. My treatment will consist of treating the underlying causes a problem #2 and problem #3. She is full CODE STATUS. Wheezing is less audible today. Still on 3 L nasal cannula. I will think that she is improved from yesterday. She is still tired, prefers to be in bed sleeping but she is getting up out of bed and walking in the room. was hospitalized last night with the same problem. She said that she make a visit him. But she says she has less air hunger and does not feel like she is so short of breath. May 23 started on nicotine patch. Plan: Continue inpatient status until no longer needing oxygen. (2) Acute exacerbation of COPD with asthma Conclusion/Plan: trigger is influenza A superimposed on COPD from smoking Plan: Between yesterday and today she has received 3 doses of Solu-Medrol. 8 hours apart. Will decrease to 12 hours apart for today, then once a day then nothing. DuoNeb every 4 hours as needed (3) Influenza A Conclusion/Plan: Tamiflu 30 mg p.o. twice daily for 5 days. Today is Day #3 Pharmacy recommends 75 mg p.o. twice daily and that was adjusted. (4) History of hypertension Conclusion/Plan: Her current blood pressure is 107 systolic. I will hold off on resuming her home Cozaar until blood pressure rebounds greater than 130. Yesterday and today her blood pressure is consistently elevated 134, 141, 122 systolic. Losartan was resumed yesterday. Will hold off on increasing l osartan. She only takes 12.5 of the 50 mg tablet. If consistently elevated over the next couple of days then may increase to 25 mg of losartan.
[2023-05-24] MEDS: IPRATROPIUM/ALBUTEROL 3 ML NEB INH PRN ×3 (15:00→23:10)
[2023-05-24] MEDS: OSELTAMIVIR 75 MG CAPSULE PO SCH (20:31)
[2023-05-24] MEDS: ATORVASTATIN 40 MG TABLET PO SCH (20:31)
[2023-05-25] MEDS: SODIUM CHLORIDE FLUSH 0.9% 10 ML SYRINGE IVP SCH ×4 (00:37→20:40)
[2023-05-25] MEDS: SODIUM CHLORIDE 0.9% 1,000 ML IV SCH ×2 (04:17→15:57)
[2023-05-25 05:16] LABS: BASOPHILS % (AUTO) 0.1 %; HCT - HEMATOCRIT 40.9 % (37.0-47.0); HGB - HEMOGLOBIN 13.2 g/dL (12.0-16.0); LYMPHOCYTES # (AUTO) 0.4 10^3/uL (1.5-3.5); LYMPHOCYTES % (AUTO) 3.8 %; MEAN CORPUSCULAR HEMOGLOBIN 30.2 pg (27.0-31.0); MEAN CORPUSCULAR HGB CONC 32.3 g/dL (32.0-36.0); MEAN CORPUSCULAR VOLUME 93.6 fL (81.0-99.0); MONOCYTES # (AUTO) 0.6 10^3/uL (0.0-1.0); MONOCYTES % (AUTO) 5.2 %; NEUTROPHILS # (AUTO) 9.5 10^3/uL (1.5-6.6); NEUTROPHILS % (AUTO) 90.7 %; PLT - PLATELET COUNT 289 10^3/uL (130-450); RED BLOOD COUNT 4.37 10^6/uL (4.20-5.40); WHITE BLOOD COUNT 10.5 x10^3/uL (4.8-10.8)
[2023-05-25 05:31] LABS: CALCIUM 8.3 mg/dL (8.5-10.3); CREATININE 0.5 mg/dL (0.6-1.3); POTASSIUM 3.8 mmol/L (3.5-4.5)
[2023-05-25] MEDS: IPRATROPIUM/ALBUTEROL 3 ML NEB INH PRN ×3 (07:23→22:15)
[2023-05-25] MEDS: methylPREDNISolone SUCCINATE 40 MG/ML VIAL IVP SCH ×2 (08:38→20:40)
[2023-05-25] MEDS: LOSARTAN 50 MG TABLET PO SCH (08:38)
[2023-05-25] MEDS: ASPIRIN EC 81 MG TABLET PO SCH (08:40)
[2023-05-25] MEDS: METOPROLOL SUCCINATE 25 MG TABLET PO SCH (08:40)
[2023-05-25] MEDS: NICOTINE 14 MG PATCH TOP SCH (08:40)
[2023-05-25] MEDS: OSELTAMIVIR 75 MG CAPSULE PO SCH ×2 (08:40→20:39)
[2023-05-25] MEDS: CLOPIDOGREL 75 MG TABLET PO SCH (08:40)
--- NOTE | 2023-05-25 16:16 | PROVIDER PROGRESS NOTE ---
Assessment/Plan - Problem List (1) Acute respiratory failure with hypoxia Assessment/Plan: Due to COPD exacerbation and acute Influenza infection. Wheezing has hardly improved. Still on 3 L nasal cannula to achieve an O2 sat of 89%. She is tired, prefers to be in bed sleeping but she is getting up out of bed and walking in the room. Her was also hospitalized here with the same problem 1 day after her and she wanted to walk over and visit him, but she is in isolation due to Influenza. Plan: Continue treating COPD exacerb and Influenza (2) Acute exacerbation of COPD with asthma Conclusion/Plan: The trigger was influenza superimposed on COPD from smoking Plan: Will add Duoneb QID scheduled Cont DuoNeb every 4 hours as needed, Pulmicort and iv steroids, Mucinex and Montelukast (3) Influenza A Conclusion/Plan: Plan: Cont infec isolation Pharmacy recommended Tamiflu 75 mg p.o. twice daily and that was adjusted. (4) DM Type 2 Conclusion/Plan: Her med list is now reconciled and shows that she was taking Metformin at home, therefore she is a diabetic. No diabetic diet or any other diabetic management has been ordered yet Plan: Will order fingerstick checks [id number] and sliding scale insulin coverage, change her diet to diabetic diet with nighttime snack and order hypoglycemia protocol (5) Hypertension Conclusion/Plan: Initially her BP was 110 systolic. Yesterday BP increased to over 140 systolic and losartan was resumed Plan: Continue with BP meds, adjusting doses upward if needed (6) Hx of CVA Conclusion/Plan: Plan: Cont home meds (70 Tobacco use Conclusion/Plan: Plan: Nicotine patch if desired Smoking cessation discussed - Current Meds Current Meds: Current Medications Generic Name Dose Route Start Last Admin Trade Name Freq PRN Reason Stop Dose Admin Acetaminophen 650 mg 05/22/23 15:52 05/23/23 14:47 Acetaminophen 325 Mg Tablet PO 650 mg Q4HR PRN Administration Pain 1 to 4, or Fever Albuterol/Ipratropium 3 ml 05/24/23 09:06 05/25/23 14:54 Ipratropium/Albuterol 3 Ml Neb INH 3 ml Q4HR PRN Administration Wheezing Aspirin 81 mg 05/24/23 09:00 05/25/23 08:40 Aspirin Ec 81 Mg Tablet PO 81 mg DAILY [facility] Administration Atorvastatin Calcium 40 mg 05/23/23 21:00 05/24/23 20:31 Atorvastatin 40 Mg Tablet PO 40 mg QPM [facility] Administration Clopidogrel Bisulfate 75 mg 05/24/23 09:00 05/25/23 08:40 Clopidogrel 75 Mg Tablet PO 75 mg DAILY [facility] Administration Sodium Chloride 1,000 mls @ 83.33 mls/hr 05/22/23 16:00 05/25/23 15:57 Normal Saline 0.9% IV 83.33 mls/hr .Q12H1M [facility] Administration Losartan Potassium 12.5 mg 05/23/23 12:00 05/25/23 08:38 Losartan 50 Mg Tablet PO 12.5 mg DAILY [facility] Administration Metoprolol Succinate 25 mg 05/23/23 12:00 05/25/23 08:40 Metoprolol Succinate 25 Mg Tablet PO 25 mg DAILY [facility] Administration Nicotine 1 patch 05/23/23 12:00 05/25/23 08:40 Nicotine 14 Mg Patch TOP 1 patch DAILY [facility] Administration Oseltamivir Phosphate 75 mg 05/24/23 21:00 05/25/23 08:40 Oseltamivir 75 Mg Capsule PO 75 mg BID [facility] Administration Sodium Chloride 10 ml 05/22/23 17:00 05/25/23 08:38 Sodium Chloride Flush 0.9% 10 Ml Syringe IVP 10 ml 0100,0900,1700 [facility] Administration - Lab Result Fish Bone Diagrams: 05/25/23 05:05 05/25/23 05:05 - Additional Planning My Orders: My Active Orders 05/25/23 Evaluate and Treat OT [OT] Routine Evaluate and Treat PT [PT] Routine 05/25/23 16:10 Nebulizer/MDI Tx. [RC] QID Resp Teach Nebulizer/MDI [RC] .ONCE 05/25/23 19:00 Ipratropium/Albuterol [Duoneb] 3 ml INH RTQID Subjective - Subjective Patient Reports: Feeling Better (Is still tachypneic with mvm) Objective Vital Signs: Vital Signs - 24 hr 05/24/23 05/24/23 05/24/23 16:30 20:30 23:10 Temperature 36.8 C Heart Rate 88 Heart Rate [ 71 Brachial] Heart Rate [ Sitting] Heart Rate [ Standing] Respiratory 24 24 Rate Blood Pressure 139/75 H [Left Brachial artery] Blood Pressure [Sitting] Blood Pressure [Standing] O2 Saturation 93 93 O2 Saturation [ Sitting] O2 Saturation [ Standing] If not protocol 3 2 2 : Oxygen Flow, liters/minute 05/25/23 05/25/23 05/25/23 00:00 07:24 07:50 Temperature 36.6 C 37.0 C Heart Rate 84 Heart Rate [ 92 99 Brachial] Heart Rate [ Sitting] Heart Rate [ Standing] Respiratory 20 22 20 Rate Blood Pressure 92/64 131/74 H [Left Brachial artery] Blood Pressure [Sitting] Blood Pressure [Standing] O2 Saturation 90 L 93 O2 Saturation [ Sitting] O2 Saturation [ Standing] If not protocol 2 3 3 : Oxygen Flow, liters/minute 05/25/23 05/25/23 13:36 14:57 Temperature Heart Rate 76 Heart Rate [ Brachial] Heart Rate [ 81 Sitting] Heart Rate [ 92 Standing] Respiratory 15 Rate Blood Pressure [Left Brachial artery] Blood Pressure 145/82 H [Sitting] Blood Pressure 144/88 H [Standing] O2 Saturation O2 Saturation [ 91 L Sitting] O2 Saturation [ 89 L Standing] If not protocol 3 : Oxygen Flow, liters/minute Oxygen O2 Source Nasal cannula Oxygen Flow Rate 5 I&O (Last 24 Hrs): Intake and Output Totals x24h 05/23/23 05/24/23 05/25/23 23:59 23:59 23:59 Intake Total 3204.089 2730 3092.183 Balance 3204.089 2730 3092.183 General: Alert, Oriented x3 HEENT: Other (L eye has squint and R face has droop) Neck: Supple Neuro: Other (L eye has squint and R face has droop) Cardiovascular: Regular rate, No murmurs (distant heart sounds due to wheezing) Respiratory: Wheezes (poor air mvm, very tight in all lung lloyd) Abdomen: Soft Extremities: No clubbing, No edema, No tenderness/swelling - Results Results: Laboratory Results WBC 10.5 x10^3/uL (4.8-10.8) 05/25/23 05:05 RBC 4.37 10^6/uL (4.20-5.40) 05/25/23 05:05 Hgb 13.2 g/dL (12.0-16.0) 05/25/23 05:05 Hct 40.9 % (37.0-47.0) 05/25/23 05:05 MCV 93.6 fL (81.0-99.0) 05/25/23 05:05 MCH 30.2 pg (27.0-31.0) 05/25/23 05:05 MCHC 32.3 g/dL (32.0-36.0) 05/25/23 05:05 RDW 15.0 % (12.0-15.0) 05/25/23 05:05 Plt Count 289 10^3/uL (130-450) 05/25/23 05:05 MPV 9.0 fL (7.9-10.8) 05/25/23 05:05 Neut # (Auto) 9.5 10^3/uL (1.5-6.6) H 05/25/23 05:05 Lymph # (Auto) 0.4 10^3/uL (1.5-3.5) L 05/25/23 05:05 [place] # (Auto) 0.6 10^3/uL (0.0-1.0) 05/25/23 05:05 Eos # (Auto) 0.0 10^3/uL (0.0-0.7) 05/25/23 05:05 Baso # (Auto) 0.0 10^3/uL (0.0-0.1) 05/25/23 05:05 Absolute Nucleated RBC 0.00 x10^3/uL 05/25/23 05:05 Nucleated RBC % 0.0 /100WBC 05/25/23 05:05 Sodium 136 mmol/L (135-145) 05/25/23 05:05 Potassium 3.8 mmol/L (3.5-4.5) 05/25/23 05:05 Chloride 102 mmol/L (101-111) 05/25/23 05:05 Carbon Dioxide 26 mmol/L (21-32) 05/25/23 05:05 Anion Gap 8.0 (6-13) 05/25/23 05:05 BUN 14 mg/dL (6-20) 05/25/23 05:05 Creatinine 0.5 mg/dL (0.6-1.3) L 05/25/23 05:05 Estimated GFR (MDRD) 118 (>89) 05/25/23 05:05 Glucose 145 mg/dL (74-104) H 05/25/23 05:05 Calcium 8.3 mg/dL (8.5-10.3) L 05/25/23 05:05 Magnesium 1.6 mg/dL (1.7-2.3) L 05/22/23 10:47 Total Bilirubin 0.6 mg/dL (0.2-1.0) 05/22/23 10:47 AST 19 IU/L (10-42) 05/22/23 10:47 ALT 12 IU/L (10-60) 05/22/23 10:47 Alkaline Phosphatase 66 IU/L (42-121) 05/22/23 10:47 B-Natriuretic Peptide 164 pg/mL (5-100) H 05/25/23 05:05 Total Protein 7.3 g/dL (6.4-8.9) 05/22/23 10:47 Albumin 4.2 g/dL (3.2-5.5) 05/22/23 10:47 Globulin 3.1 g/dL (2.1-4.2) 05/22/23 10:47 Albumin/Globulin Ratio 1.4 (1.0-2.2) 05/22/23 10:47 Lipase 22 U/L (11-82) 05/22/23 10:47 Nasal Adenovirus (PCR) NOT DETECTED 05/22/23 10:47 Nasal B. parapertussis DNA (PCR) NOT DETECTED 05/22/23 10:47 Nasal Coronavir 229E PCR NOT DETECTED 05/22/23 10:47 Nasal Coronavir HKU1 PCR NOT DETECTED 05/22/23 10:47 Nasal Coronavir NL63 PCR NOT DETECTED 05/22/23 10:47 Nasal Coronavir OC43 PCR NOT DETECTED 05/22/23 10:47 Nasal Enterovir/Rhinovir PCR NOT DETECTED 05/22/23 10:47 Nasal Influ A H1 2009 PCR DETECTED A 05/22/23 10:47 Nasal Influenza B PCR NOT DETECTED 05/22/23 10:47 Nasal Parainfluen 1 PCR NOT DETECTED 05/22/23 10:47 Nasal Parainfluen 2 PCR NOT DETECTED 05/22/23 10:47 Nasal Parainfluen 3 PCR NOT DETECTED 05/22/23 10:47 Nasal Parainfluen 4 PCR NOT DETECTED 05/22/23 10:47 Nasal RSV (PCR) NOT DETECTED 05/22/23 10:47 Nasal B.pertussis DNA PCR NOT DETECTED 05/22/23 10:47 Nasal C.pneumoniae (PCR) NOT DETECTED 05/22/23 10:47 Shantanu Human Metapneumo PCR NOT DETECTED 05/22/23 10:47 Nasal M.pneumoniae (PCR) NOT DETECTED 05/22/23 10:47 Nasal SARS-CoV-2 (PCR) NOT DETECTED 05/22/23 10:47 - Procedures Procedures: Procedures CATARAC PHACOEMULS/ASPIR (01/03/14) INSERT LENS AT CATAR EXT (01/03/14)
[2023-05-25] MEDS: INSULIN LISPRO 300 UNIT/3 ML PEN SUBQ SCH ×2 (17:04→20:44)
[2023-05-25] MEDS: IPRATROPIUM/ALBUTEROL 3 ML NEB INH SCH (18:03)
[2023-05-25] MEDS: ATORVASTATIN 40 MG TABLET PO SCH (20:39)
[2023-05-25] MEDS: MONTELUKAST 10 MG TABLET PO SCH (20:39)
[2023-05-25] MEDS: BUDESONIDE 0.5 MG/2 ML NEB INH SCH (22:15)
[2023-05-26 06:15] LABS: CALCIUM 8.5 mg/dL (8.5-10.3); CREATININE 0.5 mg/dL (0.6-1.3); POTASSIUM 3.8 mmol/L (3.5-4.5)
[2023-05-26] MEDS: IPRATROPIUM/ALBUTEROL 3 ML NEB INH SCH ×4 (07:24→19:39)
[2023-05-26] MEDS: BUDESONIDE 0.5 MG/2 ML NEB INH SCH ×2 (07:25→19:39)
[2023-05-26] MEDS: methylPREDNISolone SUCCINATE 40 MG/ML VIAL IVP SCH ×2 (07:49→21:11)
[2023-05-26] MEDS: OSELTAMIVIR 75 MG CAPSULE PO SCH ×2 (07:50→21:10)
[2023-05-26] MEDS: LOSARTAN 50 MG TABLET PO SCH (07:50)
[2023-05-26] MEDS: ASPIRIN EC 81 MG TABLET PO SCH (07:50)
[2023-05-26] MEDS: SODIUM CHLORIDE FLUSH 0.9% 10 ML SYRINGE IVP SCH ×3 (07:51→23:50)
[2023-05-26] MEDS: INSULIN LISPRO 300 UNIT/3 ML PEN SUBQ SCH ×4 (07:51→21:11)
[2023-05-26] MEDS: CLOPIDOGREL 75 MG TABLET PO SCH (07:51)
[2023-05-26] MEDS: METOPROLOL SUCCINATE 25 MG TABLET PO SCH (07:51)
[2023-05-26] MEDS: NICOTINE 14 MG PATCH TOP SCH (07:52)
[2023-05-26 10:26] LABS: ESTIMATED AVERAGE GLUCOSE 131 mg/dL (70-100); HEMOGLOBIN A1c% 6.2 % (4.27-6.07)
--- NOTE | 2023-05-26 18:49 | PROVIDER PROGRESS NOTE ---
Assessment/Plan - Problem List (1) Acute respiratory failure with hypoxia Assessment/Plan: Her hypoxia as due to COPD exacerbation and acute Influenza infection. Wheezing has hardly improved but air mvm has improved today. Still on 2 L nasal cannula to achieve an O2 sat of 89%. Plan: Cont suppl O2, titrating down as possible, target O2 sat 88% or above in a COPDer Continue treating COPD exacerb and Influenza Anticipate discharge soon since she now has better air movement and she will need an oximetry walk test on the day of discharge (2) Acute exacerbation of COPD with asthma Conclusion/Plan: The trigger was influenza superimposed on COPD from smoking Plan: Cont Duoneb QID scheduled Cont DuoNeb every 4 hours as needed, Pulmicort and iv steroids, Mucinex and Montelukast (3) Influenza A Conclusion/Plan: Plan: Cont infec isolation Pharmacy recommended Tamiflu 75 mg p.o. twice daily and that was adjusted. (4) DM Type 2 Conclusion/Plan: Her med list is now reconciled and shows that she was taking Metformin at home, therefore she is a diabetic. No diabetic diet or any other diabetic management were ordered at admission. Plan: Cont her Metformin Cont fingerstick checks [id number] and sliding scale insulin coverage, diabetic diet with nighttime snack and hypoglycemia protocol (5) Hypertension Conclusion/Plan: Initially her BP was 110 systolic. Then BP increased to over 140 systolic and Losartan was resumed Plan: Continue with BP meds, adjusting doses upward if needed (6) Hx of CVA Conclusion/Plan: Plan: Cont home meds (70 Tobacco use Conclusion/Plan: Plan: Nicotine patch if desired Smoking cessation discussed - Current Meds Current Meds: Current Medications Generic Name Dose Route Start Last Admin Trade Name Freq PRN Reason Stop Dose Admin Acetaminophen 650 mg 05/22/23 15:52 05/23/23 14:47 Acetaminophen 325 Mg Tablet PO 650 mg Q4HR PRN Administration Pain 1 to 4, or Fever Albuterol/Ipratropium 3 ml 05/24/23 09:06 05/25/23 22:15 Ipratropium/Albuterol 3 Ml Neb INH 3 ml Q4HR PRN Administration Wheezing Albuterol/Ipratropium 3 ml 05/25/23 19:00 05/26/23 15:14 Ipratropium/Albuterol 3 Ml Neb INH 3 ml RTQID REYNA Administration Aspirin 81 mg 05/24/23 09:00 05/26/23 07:50 Aspirin Ec 81 Mg Tablet PO 81 mg DAILY REYNA Administration Atorvastatin Calcium 40 mg 05/23/23 21:00 05/25/23 20:39 Atorvastatin 40 Mg Tablet PO 40 mg QPM REYNA Administration Budesonide 0.5 mg 05/25/23 19:00 05/26/23 07:25 Budesonide 0.5 Mg/2 Ml Neb INH 0.5 mg RTBID REYNA Administration Clopidogrel Bisulfate 75 mg 05/24/23 09:00 05/26/23 07:51 Clopidogrel 75 Mg Tablet PO 75 mg DAILY REYNA Administration Insulin Human Lispro 1 - 5 unit 05/25/23 17:00 05/26/23 16:49 Insulin Lispro 300 Unit/3 Ml Pen SUBQ Not Given 0800,1200,1700,2100 [facility] Protocol Losartan Potassium 12.5 mg 05/23/23 12:00 05/26/23 07:50 Losartan 50 Mg Tablet PO 12.5 mg DAILY REYNA Administration Methylprednisolone 40 mg 05/25/23 21:00 05/26/23 07:49 Methylprednisolone Succinate 40 Mg/Ml Vial IVP 40 mg BID REYNA Administration Metoprolol Succinate 25 mg 05/23/23 12:00 05/26/23 07:51 Metoprolol Succinate 25 Mg Tablet PO 25 mg DAILY REYNA Administration Montelukast Sodium 10 mg 05/25/23 21:00 05/25/23 20:39 Montelukast 10 Mg Tablet PO 10 mg QPM REYNA Administration Nicotine 1 patch 05/23/23 12:00 05/26/23 07:52 Nicotine 14 Mg Patch TOP 1 patch DAILY REYNA Administration Oseltamivir Phosphate 75 mg 05/24/23 21:00 05/26/23 07:50 Oseltamivir 75 Mg Capsule PO 75 mg BID REYNA Administration Sodium Chloride 10 ml 05/22/23 17:00 05/26/23 16:21 Sodium Chloride Flush 0.9% 10 Ml Syringe IVP 10 ml 0100,0900,1700 [facility] Administration - Lab Result Fish Bone Diagrams: 05/25/23 05:05 05/26/23 05:10 - Additional Planning My Orders: My Active Orders 05/25/23 19:00 Budesonide [Pulmicort] 0.5 mg INH RTBID Ipratropium/Albuterol [Duoneb] 3 ml INH RTQID 05/25/23 21:00 Montelukast [Singulair] 10 mg PO QPM methylPREDNISolone SUCCINATE [SOLU-Medrol (40MG VIAL)] 40 mg IVP BID 05/27/23 09:00 metFORMIN [Glucophage] 500 mg PO DAILY Subjective - Subjective Patient Reports: Feeling Better (Less cough, unchanged SOB wit activity) Objective Vital Signs: Vital Signs - 24 hr 05/25/23 05/25/23 05/26/23 22:15 22:26 00:11 Temperature 36.7 C Heart Rate 79 Heart Rate [ 88 Brachial] Respiratory 24 20 Rate Blood Pressure 137/86 H [Left Brachial artery] O2 Saturation 93 If not protocol 3 3 3 : Oxygen Flow, liters/minute 05/26/23 05/26/23 05/26/23 07:14 07:53 15:15 Temperature 36.2 C L Heart Rate 82 75 Heart Rate [ 75 Brachial] Respiratory 16 18 18 Rate Blood Pressure 155/83 H [Left Brachial artery] O2 Saturation 95 If not protocol 3 3 : Oxygen Flow, liters/minute 05/26/23 15:35 Temperature 37.2 C Heart Rate Heart Rate [ 79 Brachial] Respiratory 20 Rate Blood Pressure 155/87 H [Left Brachial artery] O2 Saturation 93 If not protocol 3 : Oxygen Flow, liters/minute Oxygen O2 Source Nasal cannula Oxygen Flow Rate 5 I&O (Last 24 Hrs): Intake and Output Totals x24h 05/24/23 05/25/23 05/26/23 23:59 23:59 23:59 Intake Total 2730 4101.048 1365.135 Balance 2730 4101.048 1365.135 General: Alert, Oriented x3 HEENT: Other (Squinting of one side of face. Wearing O2 via n.c.) Neck: Supple Neuro: Other (Face assymmetry) Cardiovascular: Regular rate Respiratory: Wheezes (Scattered wheezes, but better air mvm in all lung lloyd) Abdomen: Soft, No tenderness Extremities: No clubbing, No edema, No tenderness/swelling - Results Results: Laboratory Results WBC 10.5 x10^3/uL (4.8-10.8) 05/25/23 05:05 RBC 4.37 10^6/uL (4.20-5.40) 05/25/23 05:05 Hgb 13.2 g/dL (12.0-16.0) 05/25/23 05:05 Hct 40.9 % (37.0-47.0) 05/25/23 05:05 MCV 93.6 fL (81.0-99.0) 05/25/23 05:05 MCH 30.2 pg (27.0-31.0) 05/25/23 05:05 MCHC 32.3 g/dL (32.0-36.0) 05/25/23 05:05 RDW 15.0 % (12.0-15.0) 05/25/23 05:05 Plt Count 289 10^3/uL (130-450) 05/25/23 05:05 MPV 9.0 fL (7.9-10.8) 05/25/23 05:05 Neut # (Auto) 9.5 10^3/uL (1.5-6.6) H 05/25/23 05:05 Lymph # (Auto) 0.4 10^3/uL (1.5-3.5) L 05/25/23 05:05 [place] # (Auto) 0.6 10^3/uL (0.0-1.0) 05/25/23 05:05 Eos # (Auto) 0.0 10^3/uL (0.0-0.7) 05/25/23 05:05 Baso # (Auto) 0.0 10^3/uL (0.0-0.1) 05/25/23 05:05 Absolute Nucleated RBC 0.00 x10^3/uL 05/25/23 05:05 Nucleated RBC % 0.0 /100WBC 05/25/23 05:05 Sodium 137 mmol/L (135-145) 05/26/23 05:10 Potassium 3.8 mmol/L (3.5-4.5) 05/26/23 05:10 Chloride 102 mmol/L (101-111) 05/26/23 05:10 Carbon Dioxide 29 mmol/L (21-32) 05/26/23 05:10 Anion Gap 6.0 (6-13) 05/26/23 05:10 BUN 12 mg/dL (6-20) 05/26/23 05:10 Creatinine 0.5 mg/dL (0.6-1.3) L 05/26/23 05:10 Estimated GFR (MDRD) 118 (>89) 05/26/23 05:10 Glucose 136 mg/dL (74-104) H 05/26/23 05:10 POC Whole Bld Glucose 128 mg/dL (70 - 100) H 05/26/23 16:36 Estimat Average Glucose 131 mg/dL (70-100) H 05/26/23 05:10 Hemoglobin A1c % 6.2 % (4.27-6.07) H 05/26/23 05:10 Calcium 8.5 mg/dL (8.5-10.3) 05/26/23 05:10 Magnesium 1.6 mg/dL (1.7-2.3) L 05/22/23 10:47 Total Bilirubin 0.6 mg/dL (0.2-1.0) 05/22/23 10:47 AST 19 IU/L (10-42) 05/22/23 10:47 ALT 12 IU/L (10-60) 05/22/23 10:47 Alkaline Phosphatase 66 IU/L (42-121) 05/22/23 10:47 B-Natriuretic Peptide 164 pg/mL (5-100) H 05/25/23 05:05 Total Protein 7.3 g/dL (6.4-8.9) 05/22/23 10:47 Albumin 4.2 g/dL (3.2-5.5) 05/22/23 10:47 Globulin 3.1 g/dL (2.1-4.2) 05/22/23 10:47 Albumin/Globulin Ratio 1.4 (1.0-2.2) 05/22/23 10:47 Lipase 22 U/L (11-82) 05/22/23 10:47 Nasal Adenovirus (PCR) NOT DETECTED 05/22/23 10:47 Nasal B. parapertussis DNA (PCR) NOT DETECTED 05/22/23 10:47 Nasal Coronavir 229E PCR NOT DETECTED 05/22/23 10:47 Nasal Coronavir HKU1 PCR NOT DETECTED 05/22/23 10:47 Nasal Coronavir NL63 PCR NOT DETECTED 05/22/23 10:47 Nasal Coronavir OC43 PCR NOT DETECTED 05/22/23 10:47 Nasal Enterovir/Rhinovir PCR NOT DETECTED 05/22/23 10:47 Nasal Influ A H1 2009 PCR DETECTED A 05/22/23 10:47 Nasal Influenza B PCR NOT DETECTED 05/22/23 10:47 Nasal Parainfluen 1 PCR NOT DETECTED 05/22/23 10:47 Nasal Parainfluen 2 PCR NOT DETECTED 05/22/23 10:47 Nasal Parainfluen 3 PCR NOT DETECTED 05/22/23 10:47 Nasal Parainfluen 4 PCR NOT DETECTED 05/22/23 10:47 Nasal RSV (PCR) NOT DETECTED 05/22/23 10:47 Nasal B.pertussis DNA PCR NOT DETECTED 05/22/23 10:47 Nasal C.pneumoniae (PCR) NOT DETECTED 05/22/23 10:47 Shantanu Human Metapneumo PCR NOT DETECTED 05/22/23 10:47 Nasal M.pneumoniae (PCR) NOT DETECTED 05/22/23 10:47 Nasal SARS-CoV-2 (PCR) NOT DETECTED 05/22/23 10:47 - Procedures Procedures: Procedures CATARAC PHACOEMULS/ASPIR (01/03/14) INSERT LENS AT CATAR EXT (01/03/14)
[2023-05-26] MEDS: MONTELUKAST 10 MG TABLET PO SCH (21:10)
[2023-05-26] MEDS: ATORVASTATIN 40 MG TABLET PO SCH (21:10)
--- NOTE | 2023-05-27 07:23 | Discharge Plan ---
Discharge Plan Problem Reviewed?: Yes Disposition: Home, Self Care Condition: Fair Prescriptions: Fluticasone/Salmeterol [Advair Hfa 115-21 Mcg Inhaler] 2 puffs IH BID #1 ea Montelukast [Singulair] 10 mg PO QPM #30 tab Diet: Diabetic Activity Restrictions: Activity as Tolerated Shower Restrictions: No Instruction Topics: Flu Health Concerns: You were hospitalized to treat a very low blood oxygen level which was caused by a COPD exacerbation which was caused by influenza A infection. You have been on supplemental oxygen, you finished a course of Tamiflu for the Influenza and you needed medicines for the COPD attack. You need to STOP smoking since it has damaged your lungs to the point of you having COPD/emphysema. You are being d ischarged home today and advised to resume all your usual pre-hospital medications. You were tested to see if you need oxygen for home and you do: It should be set at 2 L/min continuously, at rest and with activity. You have been prescribed 2 new medications for your COPD. One is a Montelukast tablet to take at night, and the other is Advair inhaler to take 2 puffs twice a day. These prescriptions were electronically sent to your pharmacy [facility] in [place]. Please keep taking your other inhaler that you have at home, as your rescue inhaler. You should have a follow-up appointment with your primary care provider in the next 1 to 2 weeks. You qualify to start attending Pulmonary Rehab which is available here in this building. You and your can both attend together. Rehab helps improve your lung function and gives you tips on how to manage your COPD. It requires an order from your doctor to start attending. Plan of Treatment: As above. Care Goals: Improvement in symptoms and stabilization are the goals. Assessment: Patient understands and is agreeable with the plan. No Smoking: If you smoke, Please STOP! Call for help.
[2023-05-27] MEDS: BUDESONIDE 0.5 MG/2 ML NEB INH SCH (07:30)
[2023-05-27] MEDS: IPRATROPIUM/ALBUTEROL 3 ML NEB INH SCH (07:30)
[2023-05-27] MEDS ORDERED: metFORMIN 500 MG TABLET PO SCH (09:00)
[2023-05-27] MEDS: INSULIN LISPRO 300 UNIT/3 ML PEN SUBQ SCH (09:15)
[2023-05-27] MEDS: LOSARTAN 50 MG TABLET PO SCH (09:27)
[2023-05-27] MEDS: CLOPIDOGREL 75 MG TABLET PO SCH (09:28)
[2023-05-27] MEDS: ASPIRIN EC 81 MG TABLET PO SCH (09:28)
[2023-05-27] MEDS: methylPREDNISolone SUCCINATE 40 MG/ML VIAL IVP SCH (09:28)
[2023-05-27] MEDS: METOPROLOL SUCCINATE 25 MG TABLET PO SCH (09:28)
[2023-05-27] MEDS: OSELTAMIVIR 75 MG CAPSULE PO SCH (09:28)
[2023-05-27] MEDS: SODIUM CHLORIDE FLUSH 0.9% 10 ML SYRINGE IVP SCH (09:29)
[2023-05-27] MEDS: NICOTINE 14 MG PATCH TOP SCH (09:29)
[2023-05-27 09:36] VITALS: BP 129/77; O2SAT 94
--- NOTE | 2023-05-27 10:57 | DISCHARGE SUMMARY ---
Discharge Summary Admit Date: 05/22/23 Discharge Date: 05/27/23 Discharging Provider: Dr Vandana Parrish Primary Care Provider: -Unknown- Code Status: Attempt Resuscitation Condition at Discharge: Fair Discharge Disposition: 01 Home, Self Care - HPI History of Present Illness: 83-year-old female who smokes half a pack a day cigarettes all of her life. She was admitted in August 2014 for acute respiratory failure associated with bronchitis. She now comes back to our emergency room with a gradual onset of cough, congestion, body aching. She started wheezing. All of this was over the last 2 days. She started taking her inhaler with increasing frequency and it was not helping. Every time she tries to get up and do something simple like get up to walk to the bathroom the wheezing and coughing are uncontrolled. It takes her a very long time to sit down and get over a coughing attack. There has been no sputum production with this. No blood in her cough. She denies chest pain, palpitations, orthopnea, edema. As far she knows she has never had a heart problem. She does share with me that this is the worst she is ever felt with coughing and wheezing. This is even worse than the August 2014 admission. Appetite is still okay. She does get hungry. No GI complaints with this. In the emergency room temperature was 37, heart rate 111, respirations 28, room air saturation was 71%. She has been placed on nasal cannula to bring her O2 sat and she is requiring 4 L to bring her up to 94%. She is an alert oriented elderly female who has some accessory muscle use, can carry on partial sentence structure conversation. She is tachycardic. Diffuse wheezing on lung exam but no rhonchi or or crackles. Chest x-ray does not have pneumonia. White cell count is 10.1. BUN and creatinine are normal. BNP 212. Viral panel is positive for influenza A. I discussed the case with the emergency room provider. He is asking me to bring the patient into the hospital to treat her acute hypoxia and obstruction. She has received 2 nebulizers in the ER and she is breathing better, so I will place her in Observation to see if continue nebulizer treatment and steroid treatment will improve her quickly. - HOSPITAL COURSE Hospital Course: (1) Acute respiratory failure with hypoxia Her hypoxia was due to COPD exacerbation and acute Influenza infection. She did not improve quickly and was admitted to Inpatient status. She needed suppl O2 throughout her stay, at her best she still was on O2. On the day of discharge she performed an oximetry walk test. She was hypoxic at rest on room air with O2 sats of 85%. At rest on 2 L/min, her O2 sats improved to 93%. With ambulation on 2 L/min, her O2 sats were 91%. I am ordering portable home oxygen and a portable home O2 concentrator, set at 2 L/min continuously to treat her COPD and hypoxia. The portable home O2 concentrator is needed for portability and ease of use for her. (2) Acute exacerbation of COPD with asthma The trigger was influenza superimposed on COPD from smoking. She improved very slowly getting Duonebs QID scheduled, DuoNebs prn every 4 hours, nebulized Pulmicort BID and iv steroids, Mucinex and Montelukast qpm. (3) Influenza A She was on infectious isolation precautions. Pharmacy recommended Tamiflu 75 mg p.o. twice daily and she finished her course of treatment while here. (4) DM Type 2 From her reconciled medication list we learned she takes Metformin at home, therefore she is a diabetic, which she did not disclose at admission. We resumed her Metformin and ordered fingerstick checks and sliding scale insulin coverage, a diabetic diet and hypoglycemia protocol. (5) Hypertension Her Losartan was continued (6) Hx of CVA We continued her home meds of Aspirin, Plavix and statin. (7) Tobacco use Importance of smoking cessation discussed. She got a Nicotine patch while here. - ALLERGIES Allergies/Adverse Reactions: Allergies Allergy/AdvReac Type Severity Reaction Status Date / Time No Known Drug Allergies Allergy Verified 05/22/23 10:31 - MEDICATIONS Home Medications: Ambulatory Orders Medication Instructions Recorded Confirmed Losartan [Cozaar] 12.5 mg PO DAILY 12/13/13 05/23/23 Albuterol Sulfate [Proair 1 - 2 puffs INH Q4H PRN 05/23/23 05/23/23 Respiclick] Aspirin EC [Ecotrin] 81 mg PO DAILY 05/23/23 05/23/23 Atorvastatin Calcium 40 mg PO QPM 05/23/23 05/23/23 Clopidogrel [Plavix] 75 mg PO DAILY 05/23/23 05/23/23 Metoprolol Succinate [Toprol Xl] 25 mg PO DAILY 05/23/23 05/23/23 metFORMIN [Glucophage] 500 mg PO DAILY 05/23/23 05/23/23 Fluticasone/Salmeterol [Advair Hfa 2 puffs IH BID #1 ea 05/27/23 115-21 Mcg Inhaler] Montelukast [Singulair] 10 mg PO QPM #30 tab 05/27/23 - PHYSICAL EXAM AT DISCHARGE General Appearance: positive: No acute distress, Alert, Other (wearing O2 via n.c.) Eyes Bilateral: positive: Other (Unequal facial symmetry) Neck: positive: Nml inspection, No JVD Respiratory: positive: Wheezes (Very minimal scattered wheezes but fairly good air movement in all lung lloyd) Cardiovascular: positive: Regular rate & rhythm, No murmur (Distant heart sounds due to COPD) Abdomen: positive: Non-tender, Nml bowel sounds, No distention Skin: positive: Warm, Dry Extremities: positive: Non-tender, No pedal edema Neurologic/Psychiatric: positive: Oriented x3, Other (Facial asymmetry present) - LABS Result Diagrams: 05/25/23 05:05 05/26/23 05:10 - DIAGNOSTIC IMAGING Diagnostic Imaging Results: Final report reviewed - FOLLOW UP Follow Up: See PCP in 5 to 10 days for hospital follow-up visit. - TIME SPENT Time Spent in Discharge (Minutes): 45
== END 2023-05-27 11:40 | disposition home or self-care (01) | DRG 189 ==
LOC: ED 10:03 → MS2 15:52 → OBSVTOIN 05-23 09:00
PROVIDERS: ADMIT Specialist; ATTEND Internal Medicine
DX: J96.01 Acute respiratory failure with hypoxia (principal); J44.1 Chronic obstructive pulmonary disease with (acute) exacerbation; F17.210 Nicotine dependence, cigarettes, uncomplicated; J10.1 Influenza due to other identified influenza virus with other respiratory manifestations; E11.9 Type 2 diabetes mellitus without complications; Z79.84 Long term (current) use of oral hypoglycemic drugs; R32 Unspecified urinary incontinence; I10 Essential (primary) hypertension; Z86.73 Personal history of transient ischemic attack (TIA), and cerebral infarction without residual deficits; I25.10 Atherosclerotic heart disease of native coronary artery without angina pectoris; E78.00 Pure hypercholesterolemia, unspecified; Z79.82 Long term (current) use of aspirin; J43.9 Emphysema, unspecified
CPT/HCPCS: 36415; 71045; 80048; 80053; 83036; 83690; 83735; 83880; 85025; 87633; 93005; 94640; 94761; 96374; 97116; 97161; 97166; 97530; 99285; 99291; A9270; G0378; J7626

== ENCOUNTER 2023-09-17 08:13 | Outpatient (CLI) | payer MEDICARE, OTHER ==
--- NOTE | 2023-09-19 06:48 | XRAY Report ---
PROCEDURE: Chest 2V INDICATIONS: COPD TECHNIQUE: 2 views of the chest were acquired. COMPARISON: Single view the chest dated 05/22/2023 FINDINGS: Surgical changes and devices: None. Lungs and pleura: There is decreased interstitial markings when compared with the prior plain film d ated 05/22/2023 suggesting diuresis or resolved viral pneumonia. No acute airspace opacities. No pleur al effusion or pneumothorax. Mediastinum: Mediastinal contours appear normal. Heart size is normal. Bones and chest wall: No suspicious bony lesions. Overlying soft tissues appear unremarkable. IMPRESSION: No acute cardiopulmonary process. Reviewed by: Di Kiser MD on 09/19/2023 6:46 AM PDT Approved by: Di Kiser MD on 09/19/2023 6:46 AM PDT Station ID: [id number]
== END 2023-09-17 08:14 | disposition home or self-care (01) ==
LOC: DI 08:13
PROVIDERS: ATTEND Physician Assistant
DX: J44.9 Chronic obstructive pulmonary disease, unspecified (principal); F17.210 Nicotine dependence, cigarettes, uncomplicated

== ENCOUNTER 2023-10-06 12:59 | Outpatient (CLI) | payer MEDICARE, OTHER ==
[2023-10-06] MEDS: ALBUTEROL 1 PUFF INH STA (14:30)
== END 2023-10-06 13:00 | disposition home or self-care (01) ==
LOC: RT 12:59
PROVIDERS: ATTEND Physician Assistant
DX: J44.9 Chronic obstructive pulmonary disease, unspecified (principal); R06.02 Shortness of breath; Z87.891 Personal history of nicotine dependence
CPT/HCPCS: 94060; 94729

== ENCOUNTER 2024-06-17 10:19 | Observation (INO) ==
--- NOTE | 2024-06-17 10:38 | ED Physician Documentation ---
PD HPI DYSPNEA Stated complaint Stated Complaint: SOA,NAUSEA Chief complaint Chief Complaint: Resp History obtained from History obtained from: Patient History of Present Illness Timing - onset: How many days ago (past few days of cough, increased dyspnea and wheezing, worse this morning. Not improved with Albuterol MDI. Supposed to be on home oxygen, but only uses PRN, but still not better with this today. ) Timing - onset during: Light activity Timing - duration: Days Timing - details: Gradual onset and Still present Inciting event(s): URI (chills, cough and wheezing. ) Improved by: No O2 or Inhaler/neb Worsened by: Exertion and Coughing; No Laying flat Associated symptoms: Cough and Wheezing; No Hemoptysis, Palpitations or Bilateral edema Similar symptoms before: Diagnosis (COPD/asthma and has had dyspnea with exacerbations in the past. ) Meds/Allgy Home Medications Ambulatory Orders Medication Instructions Recorded Confirmed losartan 50 mg tablet 12.5 mg PO DAILY 12/13/13 05/23/23 albuterol sulfate 90 mcg/actuation 1 - 2 puff inhalation Q4H PRN 05/23/23 05/23/23 breath activated powder inhaler Shortness Of Air/Wheezing (ProAir RespiClick) aspirin 81 mg tablet,delayed 81 mg PO DAILY 05/23/23 05/23/23 release atorvastatin 40 mg tablet 40 mg PO QPM 05/23/23 05/23/23 clopidogrel 75 mg tablet 75 mg PO DAILY 05/23/23 05/23/23 metformin 500 mg tablet 500 mg PO DAILY 05/23/23 05/23/23 metoprolol succinate 25 mg 25 mg PO DAILY 05/23/23 05/23/23 tablet,extended release 24 hr fluticasone propionate 115 2 puff IH BID #1 ea 05/27/23 mcg-salmeterol 21 mcg/actuation HFA inhaler (Advair HFA) montelukast 10 mg tablet 10 mg PO QPM #30 tabs 05/27/23 Allergies Allergies Allergy/AdvReac Type Severity Reaction Status Date / Time No Known Drug Allergies Allergy Verified 06/17/24 10:28 [facility] Medical History Medical History (Updated 06/17/24 @ 16:59 by Vick Forrest DNP) Diabetes Social History Social History Smoking Status: Current every day smoker If you are a former smoker, when did you quit? (Date/Year): n/a Number of Years Smoked: 60 How many cigarettes a day do you smoke? (20 cigarettes=1 Pk): 10 Do you dip or chew tobacco?: No Do you vape?: No Patient requests smoking cessation consult: Yes Initiate information on smoking cessation: No Living arrangement: At home Living Condition: With spouse/s.o. Relationship: Level: Independent Home Mobility Equipment: Wheeled walker Do you feel safe in your home environment?: Yes Suffered physical, verbal, emotional, or financial abuse?: No History of Abuse: No POLST Patient has POLST: No POLST Status: Full Code Exam Constitutional normal general appearance and average body habitus HENMT oropharynx normal Lymph no lymphadenopathy noted Respiratory abnormal respiratory effort (labored), auscultation abnormal (diminished breath sound) and (bronchial breath sounds), wheezing noted (expiratory wheezes) and no rales Cardiovascular normal heart rate noted, regular rhythm noted and no edema Extremities no tenderness and full ROM Neurology speech normal Psychiatry mental status grossly normal, oriented x3 and thought process normal Results Vitals Vitals: Vital Signs - 24 hr 06/17/24 10:28 06/17/24 10:42 06/17/24 11:08 Temperature 37.1 C Temperature Source Temporal Artery Scan Pulse Rate 85 84 Respiratory Rate 28 H 20 Blood Pressure 102/76 O2 Saturation 96 Oxygen Delivery Method Nasal Cannula O2 Source Nasal cannula If not protocol: Oxygen Flow, liters/minute 2 2 Pain Intensity 0 06/17/24 11:27 06/17/24 12:48 06/17/24 13:48 Temperature Temperature Source Pulse Rate 74 78 Respiratory Rate 28 H 18 Blood Pressure 139/66 H O2 Saturation 95 85 L Oxygen Delivery Method O2 Source Nasal cannula Nasal cannula Nasal cannula If not protocol: Oxygen Flow, liters/minute 2 2 2 Pain Intensity 0 06/17/24 14:10 06/17/24 14:44 06/17/24 14:44 Temperature Temperature Source Pulse Rate 100 Respiratory Rate 26 H Blood Pressure 109/60 O2 Saturation 90 L 88 L 90 L Oxygen Delivery Method O2 Source Nasal cannula Nasal cannula Nasal cannula If not protocol: Oxygen Flow, liters/minute 2 3 3 Pain Intensity 6 06/17/24 15:00 06/17/24 15:04 06/17/24 15:36 Temperature Temperature Source Pulse Rate 90 99 Respiratory Rate 22 21 Blood Pressure 115/58 L O2 Saturation 88 L 90 L 91 L Oxygen Delivery Method O2 Source Nasal cannula Nasal cannula Nasal cannula If not protocol: Oxygen Flow, liters/minute 3 4 4 Pain Intensity 0 Oxygen O2 Source Nasal cannula Labs Labs: Laboratory Tests 06/17/24 06/17/24 06/17/24 10:56 11:20 12:27 WBC 8.7 RBC 4.61 Hgb 13.9 Hct 41.6 MCV 90.2 MCH 30.2 MCHC 33.4 RDW 15.4 H Plt Count 310 MPV 10.3 Neut # (Auto) 6.1 Lymph # (Auto) 0.8 L Lares # (Auto) 1.3 H Eos # (Auto) 0.3 Baso # (Auto) 0.1 Absolute Nucleated RBC 0.00 Nucleated RBC % 0.0 Manual Slide Review Indicated RBC Morph Micro Appear 2+ ANISOCYTOSIS Sodium 131 L Potassium 4.2 Chloride 97 L Carbon Dioxide 26 Anion Gap 8.0 BUN 12 Creatinine 0.6 Estimated GFR (MDRD) 95 Glucose 98 Calcium 9.1 Magnesium 1.9 Total Bilirubin 0.9 AST 23 ALT 15 Alkaline Phosphatase 72 Total Protein 7.0 Albumin 4.0 Globulin 3.0 Albumin/Globulin Ratio 1.3 Lipase 42 Nasal Adenovirus (PCR) NOT DETECTED Nasal B. parapertussis DNA (PCR) NOT DETECTED Nasal Coronavir 229E PCR NOT DETECTED Nasal Coronavir HKU1 PCR NOT DETECTED Nasal Coronavir NL63 PCR NOT DETECTED Nasal Coronavir OC43 PCR NOT DETECTED Nasal Enterovir/Rhinovir PCR DETECTED A Nasal Influenza B PCR NOT DETECTED Nasal Influenza A PCR NOT DETECTED Nasal Parainfluen 1 PCR NOT DETECTED Nasal Parainfluen 2 PCR NOT DETECTED Nasal Parainfluen 3 PCR NOT DETECTED Nasal Parainfluen 4 PCR NOT DETECTED Nasal RSV (PCR) NOT DETECTED Nasal B.pertussis DNA PCR NOT DETECTED Nasal C.pneumoniae (PCR) NOT DETECTED Shantanu Human Metapneumo PCR NOT DETECTED Nasal M.pneumoniae (PCR) NOT DETECTED Nasal SARS-CoV-2 (PCR) NOT DETECTED Rads (name of study) chest xray: Relevant Findings:: Final report received (no infiltrates) and EMP independent interpretation of test Interpretation: FINDINGS: Surgical changes and devices: None. Lungs and pleura: No pleural effusions or pneumothorax. No consolidation. Flattening of the hemidiaphragms can be seen on the lateral view. Mediastinum: The aorta is prominent and tortuous. The cardiac contours are within normal limits. Bones and chest wall: Age-appropriate degenerative changes are seen. No suspicious bony lesions. Overlying soft tissues appear unremarkable. IMPRESSION: Hyperexpanded lungs are seen, without an acute cardiopulmonary abnormality seen. PD Medical Decision Making ED course Complexity details: reviewed results (CXR hyperexpanded c/w COPD but no infitlrates nor PTX. ), re-evaluated patient (Still wheezing and needing higher oxygen requirements than at home after nebs x 3, steroids, and oxygen, with hypoxia still on simple in room ambulation. Will need admission. ), considered differential (seems likley viral URI with exac COPD. Given neb treatments x 3 with some improvement, but needing 4 lpm NC to maintain over 90% Sats and with just bedside standing/walking, went to 85% with the oxygen on. ), d/w patient, d/w family (spouse) and d/w client relationship consultant (Hosplitalist) Discharge Plan Discharge Patient Disposition: ED Place in Observation Condition: Stable Clinical Impression: Acute bronchitis due to Rhinovirus, Hypoxia, Acute exacerbation of chronic obstructive pulmonary disease Interventions: ED Admission Assessment Last Done: 06/17/24 17:15
[2024-06-17] MEDS: IPRATROPIUM/ALBUTEROL 3 ML NEB INH STA ×2 (11:06→15:07)
--- NOTE | 2024-06-17 11:18 | XRAY Report ---
PROCEDURE: XR Chest 2V INDICATIONS: cough, SOA, COPD TECHNIQUE: 2 views of the chest were acquired. COMPARISON: 09/17/2023, 05/22/2023 FINDINGS: Surgical changes and devices: None. Lungs and pleura: No pleural effusions or pneumothorax. No consolidation. Flattening of the hemidia phragms can be seen on the lateral view. Mediastinum: The aorta is prominent and tortuous. The cardiac contours are within normal limits. Bones and chest wall: Age-appropriate degenerative changes are seen. No suspicious bony lesions. Overlying soft tissues appear unremarkable. IMPRESSION: Hyperexpanded lungs are seen, without an acute cardiopulmonary abnormality seen. Reviewed by: Lalit Ospina MD on 06/17/2024 10:17 AM [facility] Approved by: Lalit Ospina MD on 06/17/2024 10:17 AM [facility] Station ID: [id number]
[2024-06-17] MEDS: DEXAMETHASONE 10 MG/ML VIAL IVP STA (11:23)
[2024-06-17 11:43] LABS: BASOPHILS # (AUTO) 0.1 10^3/uL (0.0-0.1); BASOPHILS % (AUTO) 1.4 %; EOSINOPHILS # (AUTO) 0.3 10^3/uL (0.0-0.7); EOSINOPHILS % (AUTO) 3.8 %; HCT - HEMATOCRIT 41.6 % (37.0-47.0); HGB - HEMOGLOBIN 13.9 g/dL (12.0-16.0); LYMPHOCYTES # (AUTO) 0.8 10^3/uL (1.5-3.5); LYMPHOCYTES % (AUTO) 9.5 %; MEAN CORPUSCULAR HEMOGLOBIN 30.2 pg (27.0-31.0); MEAN CORPUSCULAR HGB CONC 33.4 g/dL (32.0-36.0); MEAN CORPUSCULAR VOLUME 90.2 fL (81.0-99.0); MEAN PLATELET VOLUME 10.3 fL (7.9-10.8); MONOCYTES # (AUTO) 1.3 10^3/uL (0.0-1.0); MONOCYTES % (AUTO) 14.9 %; NEUTROPHILS # (AUTO) 6.1 10^3/uL (1.5-6.6); NEUTROPHILS % (AUTO) 70.2 %; PLT - PLATELET COUNT 310 10^3/uL (130-450); RED BLOOD COUNT 4.61 10^6/uL (4.20-5.40); RED CELL DISTRIBUTION WIDTH 15.4 % (12.0-15.0); WHITE BLOOD COUNT 8.7 x10^3/uL (4.8-10.8)
[2024-06-17 11:45] LABS: SLIDE REVIEW? Indicated
[2024-06-17 12:05] LABS: RBC MORPHOLOGY (MULTIPLE) 2+ ANISOCYTOSIS (NORMAL)
[2024-06-17 12:17] LABS: B. PARAPERTUSSIS- RESP PCR PAN NOT DETECTED; B. PERTUSSIS- RESP PCR PANEL NOT DETECTED; C. PNEUMONIAE- RESP PCR PANEL NOT DETECTED; CORONAVIRUS 229E-RESP PCR NOT DETECTED; CORONAVIRUS HKU1-RESP PCR NOT DETECTED; CORONAVIRUS NL63-RESP PCR NOT DETECTED; CORONAVIRUS OC43-RESP PCR NOT DETECTED; HUMAN METAPNEUMOVIRUS NOT DETECTED; INFLUENZA A- RESP PCR PANEL NOT DETECTED; INFLUENZA B - RESP PCR PANEL NOT DETECTED; M. PNEUMONIAE- RESP PCR PANEL NOT DETECTED; PARAINFLUENZA VIRUS 1 NOT DETECTED; PARAINFLUENZA VIRUS 2 NOT DETECTED; PARAINFLUENZA VIRUS 4 NOT DETECTED; RHINOVIRUS/ENTEROVIRUS DETECTED; RSV- RESP PCR PANEL NOT DETECTED; SARS-CoV-2 -RESP PCR PANEL NOT DETECTED
[2024-06-17] MEDS: SODIUM CHLORIDE 0.9% 500 ML IV STA (12:40)
[2024-06-17 12:45] LABS: ALBUMIN/GLOBULIN RATIO 1.3 (1.0-2.2); BILIRUBIN,TOTAL 0.9 mg/dL (0.2-1.0); CALCIUM 9.1 mg/dL (8.5-10.3); CREATININE 0.6 mg/dL (0.6-1.3); MAGNESIUM 1.9 mg/dL (1.7-2.3); POTASSIUM 4.2 mmol/L (3.5-4.5)
[2024-06-17] MEDS: BUDESONIDE 0.5 MG/2 ML NEB INH STA (12:47)
[2024-06-17] MEDS: ALBUTEROL NEB 2.5 MG/3 ML INH STA (12:47)
--- NOTE | 2024-06-17 16:47 | HISTORY & PHYSICAL EXAMINATION ---
Chief Complaint Chief Complaint Chief Complaint: Shortness of breath History of Present Illness Admitted From Admitted From:: Home with History Obtained From History obtained from: Patient interview History of Present Illness HPI Comment/Other: 84-year-old female PMH significant for COPD, diabetes managed with metformin, hypertension, CVA presents with shortness of breath over the past few days. She denies fever, chills. She reports wheezing and wet cough. In the ER, respiratory viral panel was performed which was positive for rhinovirus. CXR was performed which showed no acute cardiopulmonary process. She required 4 L oxygen, wears 2 L oxygen occasionally at home. She was given a dose of IV Decadron and hospitalist was contacted for admission for acute on chronic hypoxic respiratory failure Meds/Allgy Home Medications Ambulatory Orders Medication Instructions Recorded Confirmed losartan 50 mg tablet 12.5 mg PO DAILY 12/13/13 05/23/23 albuterol sulfate 90 mcg/actuation 1 - 2 puff inhalation Q4H PRN 05/23/23 05/23/23 breath activated powder inhaler Shortness Of Air/Wheezing (ProAir RespiClick) aspirin 81 mg tablet,delayed 81 mg PO DAILY 05/23/23 05/23/23 release atorvastatin 40 mg tablet 40 mg PO QPM 05/23/23 05/23/23 clopidogrel 75 mg tablet 75 mg PO DAILY 05/23/23 05/23/23 metformin 500 mg tablet 500 mg PO DAILY 05/23/23 05/23/23 metoprolol succinate 25 mg 25 mg PO DAILY 05/23/23 05/23/23 tablet,extended release 24 hr fluticasone propionate 115 2 puff IH BID #1 ea 05/27/23 mcg-salmeterol 21 mcg/actuation HFA inhaler (Advair HFA) montelukast 10 mg tablet 10 mg PO QPM #30 tabs 05/27/23 Allergies Allergies Allergy/AdvReac Type Severity Reaction Status Date / Time No Known Drug Allergies Allergy Verified 06/17/24 10:28 [facility] Medical History Medical History (Updated 06/17/24 @ 16:59 by Vick Forrest DNP) Diabetes Social History Social History Smoking Status: Current every day smoker If you are a former smoker, when did you quit? (Date/Year): n/a Number of Years Smoked: 60 How many cigarettes a day do you smoke? (20 cigarettes=1 Pk): 7 Do you dip or chew tobacco?: No Patient requests smoking cessation consult: Yes Initiate information on smoking cessation: No Living arrangement: At home Living Condition: With spouse/s.o. Relationship: Level: Independent Home Mobility Equipment: Walker Do you feel safe in your home environment?: Yes Suffered physical, verbal, emotional, or financial abuse?: No History of Abuse: No POLST Patient has POLST: No POLST Status: Full Code Review of Systems Status of ROS: 10 or more systems reviewed and unremarkable except as noted in history and below Constitutional Denies: Fatigue, Fever, Chills or Malaise Cardiovascular Reports: shortness of breath with exertion; Denies: Irregular heart rate, chest pain or palpitations Respiratory Reports: Shortness of breath and Cough; Denies: Sputum production Gastrointestinal Denies: Abdominal pain or Abdominal distention Neurological Reports: General weakness Endocrine Denies: Fatigue Exam Constitutional normal general appearance and no apparent distress HENMT normocephalic and head/scalp atraumatic Eyes PERRL Neck/C-Spine visual inspection normal Lymph no lymphadenopathy noted Chest inspection of chest normal Respiratory breath sounds equal bilaterally Rhonchorous breath sounds with wheezes, expiratory Cardiovascular normal heart rate noted and regular rhythm noted Gastrointestinal abdomen normal to inspection and abdomen soft to palpation Genitourinary no CVA tenderness Extremities normal to inspection Neurology GCS 15 Psychiatry oriented x3 Skin skin color normal Conclusion/Plan Problem List (1) Acute on chronic hypoxic respiratory failure: Plan: Manage COPD, rhinovirus as below O2 as needed I am placing the patient in observation for close monitoring of her oxygenation status and high-dose steroid burst (2) Acute exacerbation of chronic obstructive pulmonary disease: Plan: I have ordered: 40 mg prednisone p.o. daily x 4 days starting tomorrow DuoNebs RT every 4 hours Azithromycin 500 mg p.o. daily x 3 days (3) Acute bronchitis due to Rhinovirus: Plan: Patient tested positive for rhinovirus in the ER I have ordered: Prednisone, DuoNebs as described above as well as azithromycin for its anti- inflammatory properties (4) History of hypertension: Plan: I am restarting her losartan 12.5 mg p.o. daily starting tomorrow as well as her metoprolol succinate 25 mg p.o. daily which is her home regimen (5) Diabetes: Plan: Managed with metformin at home, holding this while in the hospital. I have ordered an A1c and will place her on SSI Plan Placed in observation Full code, does not want to be intubated Her is her surrogate decision-maker Lab Results Lab results reviewed: Yes 06/17/24 11:20 06/17/24 12:27 Core Measures Anticipated LOS I expect patient to be DC'd or transferred within 96 hours.: Yes DVT/VTE - Prophylaxis VTE/DVT Prophylaxis med ordered at admit?: Yes
[2024-06-17] MEDS ORDERED: SODIUM CHLORIDE FLUSH 0.9% 10 ML SYRINGE IVP PRN (17:30)
[2024-06-17] MEDS ORDERED: ONDANSETRON 4 MG/2 ML VIAL IVP PRN (17:30)
[2024-06-17] MEDS ORDERED: ONDANSETRON ODT 4 MG TABLET TL PRN (17:30)
[2024-06-17] MEDS ORDERED: ACETAMINOPHEN 325 MG TABLET PO PRN (17:30)
[2024-06-17] MEDS: INSULIN LISPRO 300 UNIT/3 ML PEN SUBQ SCH (18:25)
[2024-06-17] MEDS: SODIUM CHLORIDE FLUSH 0.9% 10 ML SYRINGE IVP SCH (18:31)
[2024-06-17] MEDS: LACTATED RINGERS 1,000 ML IV SCH (18:31)
[2024-06-17] MEDS: FORMOTEROL FUMARATE NEB 20 MCG/2 ML INH SCH (20:15)
[2024-06-17] MEDS: BUDESONIDE 0.5 MG/2 ML NEB INH SCH (20:15)
[2024-06-17] MEDS: IPRATROPIUM/ALBUTEROL 3 ML NEB INH SCH (20:16)
[2024-06-17] MEDS: NICOTINE 21 MG PATCH TOP SCH (21:30)
[2024-06-17] MEDS: ATORVASTATIN 40 MG TABLET PO SCH (21:31)
[2024-06-17] MEDS: MONTELUKAST 10 MG TABLET PO SCH (21:31)
[2024-06-18] MEDS: METOPROLOL SUCCINATE 25 MG TABLET PO SCH (08:39)
[2024-06-18] MEDS: ENOXAPARIN 40 MG/0.4 ML SYRINGE SUBQ SCH (08:39)
[2024-06-18] MEDS: AZITHROMYCIN 250 MG TABLET PO SCH (08:39)
[2024-06-18] MEDS: LOSARTAN 50 MG TABLET PO SCH (08:40)
[2024-06-18] MEDS: predniSONE 20 MG TABLET PO SCH (08:40)
[2024-06-18] MEDS: ASPIRIN EC 81 MG TABLET PO SCH (08:40)
--- NOTE | 2024-06-18 09:54 | PHARMACY PROGRESS NOTE ---
Best Possible Medication History Admit Date and Time: 06/17/24 1650 Home Medications Medication Instructions Recorded Confirmed Type losartan 50 mg tablet 25 mg PO DAILY 12/13/13 06/18/24 History albuterol sulfate 90 mcg/actuation 1 - 2 puff inhalation Q4H PRN 05/23/23 06/18/24 History breath activated powder inhaler Shortness Of Air/Wheezing (ProAir RespiClick) aspirin 81 mg tablet,delayed 81 mg PO DAILY 05/23/23 06/18/24 History release atorvastatin 40 mg tablet 40 mg PO QPM 05/23/23 06/18/24 History clopidogrel 75 mg tablet 75 mg PO DAILY 05/23/23 06/18/24 History metformin 500 mg tablet 500 mg PO DAILY 05/23/23 06/18/24 History metoprolol succinate 25 mg 12.5 mg PO BID 05/23/23 06/18/24 History tablet,extended release 24 hr cholecalciferol (vitamin D3) 50 50 mcg PO BID 06/18/24 06/18/24 History mcg (2,000 unit) capsule fluticasone propionate 115 1 puff inhalation BID 06/18/24 06/18/24 History mcg-salmeterol 21 mcg/actuation HFA inhaler (Advair HFA) [id number] 8 mg-folic 400 1 tab PO DAILY 06/18/24 06/18/24 History mcg-K 50 mcg-lutein 300 mcg tablet (Centrum Silver Women) sertraline 25 mg tablet 25 mg PO DAILY 06/18/24 06/18/24 History Processed by: Pharmacy Medications reviewed in ED?: No Medication History completed: Yes Patient Interview: Completed Secondary Source(s): Written medication list, Pharmacy records and Insurance records [facility] Statement: As the person ultimately responsible for medication therapy, providers are able to order a medication from an existing home medication list in [facility] via the "Reconcile Routine" prior to Confirmation of that medication by client support associate. Such practice is discouraged except when the physician, in their clinical judgment, deems that a medical need exists for a medication without regard to previous use.
[2024-06-18 11:04] LABS: BASOPHILS % (AUTO) 0.2 %; EOSINOPHILS % (AUTO) 0.1 %; HCT - HEMATOCRIT 39.7 % (37.0-47.0); LYMPHOCYTES # (AUTO) 0.4 10^3/uL (1.5-3.5); MEAN CORPUSCULAR HGB CONC 32.7 g/dL (32.0-36.0); MEAN CORPUSCULAR VOLUME 91.7 fL (81.0-99.0); MEAN PLATELET VOLUME 9.2 fL (7.9-10.8); MONOCYTES # (AUTO) 0.6 10^3/uL (0.0-1.0); MONOCYTES % (AUTO) 4.5 %; NEUTROPHILS # (AUTO) 11.8 10^3/uL (1.5-6.6); NEUTROPHILS % (AUTO) 91.9 %; PLT - PLATELET COUNT 304 10^3/uL (130-450); RED BLOOD COUNT 4.33 10^6/uL (4.20-5.40); RED CELL DISTRIBUTION WIDTH 15.1 % (12.0-15.0); WHITE BLOOD COUNT 12.9 x10^3/uL (4.8-10.8)
[2024-06-18 11:28] LABS: CALCIUM 9.4 mg/dL (8.5-10.3); CREATININE 0.6 mg/dL (0.6-1.3); POTASSIUM 4.5 mmol/L (3.5-4.5)
--- NOTE | 2024-06-18 12:06 | Discharge Summary ---
Discharge Summary Admit Date: 06/17/24 Discharge Date: 06/18/24 Discharging Provider: Vick Forrest NP Primary Care Provider: Pratik Rausch Code Status: Attempt Resuscitation DIAGNOSES Admission Diagnoses: Acute on chronic hypoxic respiratory failure COPD with acute exacerbation Acute bronchitis due to rhinovirus History of hypertension Type 2 diabetes mellitus Discharge Diagnoses with Status of Each Condition: Acute on chronic hypoxic respiratory failureimproving, being discharged on steroid burst COPD with acute exacerbationresolving Acute bronchitis due to rhinovirusactive History of hypertensionchronic Type 2 diabetes mellituschronic HPI History of Present Illness: 84-year-old female H significant for COPD, diabetes managed with metformin, hypertension, CVA presents with shortness of breath over the past few days. She denies fever, chills. She reports wheezing and wet cough. In the ER, respiratory viral panel was performed which was positive for rhinovirus. CXR was performed which showed no acute cardiopulmonary process. She required 4 L oxygen, wears 2 L oxygen occasionally at home. She was given a dose of IV Decadron and hospitalist was contacted for admission for acute on chronic hypoxic respiratory failure HOSPITAL COURSE Hospital Course: The patient was placed in observation and started on steroid burst. Today, her dyspnea has much improved and she is being discharged to finish a course of steroids and azithromycin at home. She has been instructed to follow-up with primary care within 2 weeks. She was evaluated by respiratory therapy, who instructed her to use 2 L oxygen at rest which she already has set up. She will need 4 L oxygen with ambulation ALLERGIES Allergies Allergy/AdvReac Type Severity Reaction Status Date / Time No Known Drug Allergies Allergy Verified 06/17/24 10:28 MEDICATIONS Ambulatory Orders Medication Instructions Recorded Confirmed losartan 50 mg tablet 25 mg PO DAILY 12/13/13 06/18/24 albuterol sulfate 90 mcg/actuation 1 - 2 puff inhalation Q4H PRN 05/23/23 06/18/24 breath activated powder inhaler Shortness Of Air/Wheezing (ProAir RespiClick) aspirin 81 mg tablet,delayed 81 mg PO DAILY 05/23/23 06/18/24 release atorvastatin 40 mg tablet 40 mg PO QPM 05/23/23 06/18/24 clopidogrel 75 mg tablet 75 mg PO DAILY 05/23/23 06/18/24 metformin 500 mg tablet 500 mg PO DAILY 05/23/23 06/18/24 metoprolol succinate 25 mg 12.5 mg PO BID 05/23/23 06/18/24 tablet,extended release 24 hr azithromycin 250 mg tablet 500 mg (2 x 250 mg) PO DAILY 2 06/18/24 days #4 tabs cholecalciferol (vitamin D3) 50 50 mcg PO BID 06/18/24 06/18/24 mcg (2,000 unit) capsule fluticasone propionate 115 1 puff inhalation BID 06/18/24 06/18/24 mcg-salmeterol 21 mcg/actuation HFA inhaler (Advair HFA) [id number] 8 mg-folic 400 1 tab PO DAILY 06/18/24 06/18/24 mcg-K 50 mcg-lutein 300 mcg tablet (Centrum Silver Women) nicotine 21 mg/24 hr daily 1 patch topical DAILY 30 days #28 06/18/24 transdermal patch ea prednisone 20 mg tablet 40 mg (2 x 20 mg) PO DAILY 3 days 06/18/24 #6 tabs sertraline 25 mg tablet 25 mg PO DAILY 06/18/24 06/18/24 PHYSICAL EXAM AT DISCHARGE General Appearance: positive No acute distress and Alert Eyes Bilateral: positive Normal inspection and PERRL ENT: positive ENT inspection nml Neck: positive Nml inspection Respiratory: positive Chest non-tender and Wheezes (Improved) Cardiovascular: positive Regular rate & rhythm Peripheral Pulses: positive 2+ Abdomen: positive Non-tender Skin: positive Color nml Extremities: positive Non-tender Neurologic/Psychiatric: positive Oriented x3 LABS 06/18/24 10:58 06/18/24 10:58 FOLLOW UP Follow Up: With PCP TIME SPENT Time Spent in Discharge (Minutes): 35 Discharge Plan Discharge Patient Disposition: 01 Home, Self Care Condition: Stable Medically Cleared Date:: 06/18/24 Prescriptions: New nicotine 21 mg/24 hr Patch 24 Hour 1 patch topical DAILY 30 Days Qty: 28 0RF azithromycin 250 mg Tablet 500 mg PO DAILY 2 Days Qty: 4 0RF prednisone 20 mg Tablet 40 mg PO DAILY 3 Days Qty: 6 0RF Continued losartan 50 MG tablet 25 mg PO DAILY atorvastatin 40 MG tablet 40 mg PO QPM metformin 500 MG tablet 500 mg PO DAILY clopidogrel 75 MG tablet 75 mg PO DAILY aspirin 81 MG tablet,delayed release (DR/EC) 81 mg PO DAILY metoprolol succinate 25 MG tablet extended release 24 hr 12.5 mg PO BID ProAir RespiClick 90 MCG aerosol powdr breath activated 1 - 2 puff inhalation Q4H PRN (Reason: Shortness Of Air/Wheezing) Centrum Silver Women 8 mg iron-400 mcg-50 mcg tablet 1 tab PO DAILY cholecalciferol (vitamin D3) 50 mcg (2,000 unit) capsule 50 mcg PO BID sertraline 25 mg tablet 25 mg PO DAILY fluticasone propion-salmeterol [Advair HFA] 115-21 mcg/actuation HFA aerosol inhaler 1 puff INHALATION BID Diet: Diabetic Interventions: Belongings Inventory Last Done: 06/17/24 21:33 Health Concerns: You came into the hospital with some difficulty breathing. Your initial chest x-ray did not show any infectious process, but your nasal swab was positive for rhinovirus. This rhinovirus triggered an exacerbation of your COPD. You were placed in observation so that we could put you on steroids. I would like for you to continue steroids for than another few days. I would also like you to finish a course of azithromycin, as this has some anti-inflammatory properties. I would also like for you to take a mucolytic such as Mucinex. Please follow-up with your primary care provider within the next 2 weeks for further management Print Language: Spanish Patient Instructions: Chronic Lung Disease Dyspnea Scale Stand Alone Forms: PCP List Follow-up Care: OSMAR ORELLANA PA-C [Primary Care Provider] -
[2024-06-18 14:24] VITALS: O2SAT 93
[2024-06-18 15:56] VITALS: BP 115/82; TEMP 98.1
== END 2024-06-18 16:20 | disposition home or self-care (01) ==
LOC: MS2 10:19 → ED 10:19 → MS2 16:46 → ED 17:16
PROVIDERS: ADMIT Nurse Practitioner Acute Care; ATTEND Nurse Practitioner Acute Care